=== PATIENT | female | born 1955 | race Caucasian/White ===

== ENCOUNTER 2018-04-27 17:46 | Outpatient (CLI) | payer OTHER, SELFPAY ==
[2018-04-27] VITALS (19 sets, daily range): BP systolic 141–169; BP diastolic 78–88; PULSE 58–93; RESP 12–16; TEMP 36.2–37.2; O2SAT 97–100; BMI 21.8
--- NOTE | 2018-04-27 22:50 | PC.NURSE ---
During infusion pt would begin to get upset, speaking rapidly, and crying. Blood pressure would increase during these moments. Calming techniques required with good results, will continue monitoring.
[2018-04-28] VITALS: BP 154/82; PULSE 70; PULSE 84; RESP 14; TEMP 36.6; O2SAT 100
[2018-04-28 00:05] VITALS: BP 160/100; PULSE 89; RESP 16; TEMP 36.3; O2SAT 98
--- NOTE | 2018-04-28 00:59 | PC.NURSE ---
Phoned [facility] to set up transfer back to [place]. The ambulance service reported they do not transfer [facility] patients after midnight, but would be happy to transfer at 0800 in the an. Alerted House Super Sharon Mcdonnell RN.
[2018-04-28 01:00] VITALS: BP 134/97; PULSE 75; RESP 14; TEMP 36.6; O2SAT 100
[2018-04-28 01:07] LABS: Hematocrit 32.6 % (37.0-47.0); Hemoglobin 9.9 g/dL (12.2-16.2)
--- NOTE | 2018-04-28 02:47 | PC.NURSE ---
Got pt settled following information concerning transfer was not going to happen until 0800. Pt has water w/i reach and call bauman in bed with her. Bed safety is on and audible. Suggested pt try to rest, lighting arranged to pt's satisfaction, will continue monitoring.
[2018-04-28 04:00] VITALS: PULSE 70
--- NOTE | 2018-04-28 06:38 | PC.NURSE ---
Pt with intermittent sleep, awake more than not. Confusion, anxious, and suspicion continues with each room entry. IV d/c'd following last unit. Pt resting on right lateral with nad, even and unlabored breathing. Pt reports she has waited as calmly as I can for breakfast. Will continue monitoring.
--- NOTE | 2018-04-28 07:00 | PC.NURSE ---
Shift report given with no changes from previous note.
--- NOTE | 2018-04-28 07:43 | PC.NURSE ---
Shift report given to Juana Trimble RN
--- NOTE | 2018-04-28 08:04 | PC.NURSE ---
[facility] [place]
== END 2018-04-28 08:24 ==
PROVIDERS: PCP Emergency Medicine; Visit Provider Emergency Medicine
DX: D64.9 Anemia, unspecified (principal)
CPT/HCPCS: 36415; 36430; 85014; 85018; 86850; P9016

== ENCOUNTER 2018-05-23 05:43 | Inpatient (IN) ==
--- NOTE | 2018-05-23 05:49 | Emergency Department Note ---
ED Disposition Clinical Impression: Hypoxia, Sinus tachycardia, Left shift, Hyponatremia, Hypochloremia, Elevated d-dimer, Hypomagnesemia, Upper gastrointestinal bleed, Severe sepsis Aspiration pneumonia Qualifiers: Aspiration pneumonia type: unspecified Laterality: bilateral Lung location: unspecified part of lung Qualified Code(s): J69.0 - Pneumonitis due to inhalation of food and vomit Leukocytosis Qualifiers: Leukocytosis type: unspecified Qualified Code(s): D72.829 - Elevated white blood cell count, unspecified Fever Qualifiers: Fever type: unspecified Qualified Code(s): R50.9 - Fever, unspecified Anemia Qualifiers: Anemia type: unspecified type Qualified Code(s): D64.9 - Anemia, unspecified Chronic renal insufficiency Qualifiers: Chronic kidney disease stage: unspecified stage Qualified Code(s): N18.9 - Chronic kidney disease, unspecified Disposition: Admitted As Inpatient Condition on Discharge: Serious (Stable) Time of Disposition: 07:03 - Critical Care Critical Care Time: No Attestation: On , the high probability of a clinically significant, sudden or life threatening deterioration of the following system(s) required my full and direct attention, intervention and personal management. The time I documented below is in addition to time spent performing reported procedures but includes the following listed in this critical care notation. Medical Decision Making - Medical Records Medical records reviewed: Yes: I reviewed the patient's medical records. - [place] Inquiry Pt receiving controlled substance: No Vital Signs: 05/23/18 05:44 05/23/18 06:02 05/23/18 06:16 Temperature 103.1 F H Temperature Source Rectal Pulse Rate 129 H Pulse Rate [Right Radial] 131 H 122 H Respiratory Rate 14 18 Blood Pressure [Right Arm] 111/72 105/63 L Blood Pressure Mean [Right Arm] 85 77 Blood Pressure Source [Right Arm] Automatic Cuff Automatic Cuff Blood Pressure Position [Right Arm] Sitting Supine 02 Sat by Pulse Oximetry 80 L 87 L Oxygen Delivery Method Nasal Cannula Nasal Cannula Oxygen Flow Rate (LPM) 2 4 05/23/18 06:30 05/23/18 06:45 05/23/18 07:12 Temperature 99.3 F Temperature Source Rectal Pulse Rate Pulse Rate [Right Radial] 120 H 118 H 110 H Respiratory Rate 18 18 20 Blood Pressure [Right Arm] 91/59 L 93/59 L 93/48 L Blood Pressure Mean [Right Arm] 69 70 63 Blood Pressure Source [Right Arm] Automatic Cuff Automatic Cuff Blood Pressure Position [Right Arm] Supine Supine 02 Sat by Pulse Oximetry 93 L 95 98 Oxygen Delivery Method Nasal Cannula Nasal Cannula Nasal Cannula Oxygen Flow Rate (LPM) 4 4 05/23/18 07:16 Temperature Temperature Source Pulse Rate Pulse Rate [Right Radial] 109 H Respiratory Rate 22 Blood Pressure [Right Arm] 88/56 L Blood Pressure Mean [Right Arm] 66 Blood Pressure Source [Right Arm] Blood Pressure Position [Right Arm] 02 Sat by Pulse Oximetry 99 Oxygen Delivery Method Nasal Cannula Oxygen Flow Rate (LPM) 4 - Lab Data Lab results reviewed: Yes: I reviewed the patient's lab results. Lab Results 05/23/18 05:52: WBC 15.3 H, RBC 3.37 L, Hgb 9.4 L, Hct 29.8 L, MCV 88.3, MCH 27.8, MCHC 31.4 L, RDW 19.2 H, Plt Count 203, MPV 6.7 L, Neut % (Auto) 89.1 H, Lymph % (Auto) 7.5 L, George % (Auto) 3.0, Eos % (Auto) 0.3, Baso % (Auto) 0.1, Neut # (Auto) 13.7 H, Lymph # (Auto) 1.2, George # (Auto) 0.5, Eos # (Auto) 0.1, Baso # (Auto) 0.0 05/23/18 05:52: APTT 42.8 H 05/23/18 05:52: Sodium 125 L, Potassium 4.4, Chloride 94 L, Carbon Dioxide 21, Anion Gap 14.4, BUN 43 H, Creatinine 2.18 H, Estimated Creat Clear 22, Estimated GFR 23 L, Est GFR ( Amer) 28 L, Glucose 93, Calcium 7.3 L, Total Bilirubin 0.4, AST 17, ALT 11 L, Alkaline Phosphatase 133 H, Total Creatine Kinase 45, CK-MB (CK-2) < 0.5, CK-MB (CK-2) Rel Index 1.1, Troponin I < 0.02, Total Protein 6.5, Albumin 1.2 L, Globulin 5.3 H, Albumin/Globulin Ratio 0.2 L, Amylase 20 L, Lipase 59 L 05/23/18 05:52: Urine Color Dk yellow, Urine Appearance Turbid, Urine pH 6.0, Ur Specific Geary 1.010, Urine Protein 2+, Urine Glucose (UA) Negative, Urine Ket ones Negative, Urine Blood 3+, Urine Nitrate Negative, Urine Bilirubin Negative, Urine Urobilinogen 0.2, Ur Leukocyte Esterase 2+ A, Urine RBC Tntc, Urine WBC 10-20, Ur Squamous Epith Cells Occasional, Urine Bacteria 4+ 05/23/18 05:52: PT 13.0 H, INR 1.27 H 05/23/18 05:52: Stool Occult Blood Positive A 05/23/18 05:52: Magnesium 0.7 L 05/23/18 05:52: B-Natriuretic Peptide 182 H 05/23/18 05:52: D-Dimer 3510 H* 05/23/18 05:52: Lactate 0.5 05/23/18 05:56: Specimen Source L radial, O2 % 4 lpm, ABG pH 7.43, ABG pCO2 29.0 L, ABG pO2 98.9, ABG HCO3 18.9 L, ABG Total CO2 19.8 L, ABG O2 Saturation 97, ABG Base Excess -5.4 L, Ryan Test Acceptable 05/23/18 06:30: Blood Type O Negative, Antibody Screen Negative Result diagrams: 05/23/18 05:52 05/23/18 05:52 Orders (Tests/Meds): ED MEDICATIONS Generic Name Dose Route Start Last Admin Trade Name Freq PRN Reason Stop Dose Admin Albuterol Sulfate 2.5 mg 05/23/18 09:00 Albuterol 0.083% 2.5mg/3ml Neb IH 06/22/18 08:59 Q6HP PRN Dyspnea Pantoprazole Sodium 80 mg/ 100 mls @ 10 mls/hr 05/23/18 06:00 05/23/18 06:19 Sodium Chloride IV 05/26/18 05:59 10 mls/hr .Q10H NILS Administration Vancomycin HCl 1,000 mg/ 250 mls @ 125 mls/hr 05/23/18 05:58 05/23/18 06:19 Sodium Chloride IV 05/23/18 07:57 125 mls/hr ONCE ONE Administration Clindamycin Phosphate 900 mg/ 106 mls @ 100 mls/hr 05/23/18 06:27 05/23/18 06:57 Sodium Chloride IV 05/23/18 07:30 100 mls/hr ONCE ONE Administration Protocol Sodium Chloride 1,000 mls @ 75 mls/hr 05/23/18 07:15 Sod Chlor 0.9% 1000ml Bag IV 06/22/18 07:14 .[id number] NILS Clindamycin Phosphate 600 mg/ 104 mls @ 104 mls/hr 05/23/18 07:15 05/23/18 07:21 Sodium Chloride IV 06/06/18 07:14 Not Given Q6H NILS Protocol Magnesium Sulfate 2 gm/ Sodium 104 mls @ 100 mls/hr 05/23/18 07:13 Chloride IV 05/23/18 08:15 ONCE ONE Vancomycin HCl 1,000 mg/ 250 mls @ 125 mls/hr 05/23/18 07:15 05/23/18 07:21 Sodium Chloride IV 06/06/18 07:14 Not Given Q24H NILS Sodium Chloride 1,500 mls @ 750 mls/hr 05/23/18 07:15 05/23/18 07:21 Sod Chlor 0.9% 1000ml Bag 30 ml/kg infuse over 2 hr (1500 ml) 05/23/18 09:14 750 mls/hr IV Administration .Q2H ONE Protocol Ondansetron HCl 4 mg 05/23/18 07:04 Zofran 4mg/2ml Vial IV 06/22/18 07:03 Q8HP PRN Nausea Discontinued Medications Generic Name Dose Route Start Last Admin Trade Name Freq PRN Reason Stop Dose Admin Albuterol/Ipratropium 3 ml 05/23/18 05:57 05/23/18 07:18 Duoneb 3ml Neb 05/23/18 05:58 Not Given ONCE ONE Albuterol/Ipratropium 3 ml 05/23/18 05:56 05/23/18 07:18 Duoneb 3ml Neb 05/23/18 05:57 Not Given ONCE ONE Sodium Chloride 1,000 mls @ 999 mls/hr 05/23/18 06:00 05/23/18 06:19 Sod Chlor 0.9% 1000ml Bag IV 05/23/18 07:00 999 mls/hr .Q1H1M NILS Administration Pantoprazole Sodium 40 mg/ 100 mls @ 10 mls/hr 10/23/18 05:49 05/23/18 06:17 Sodium Chloride IV 05/23/18 15:48 Not Given .Q10H ONE Levalbuterol HCl 1.25 mg 05/23/18 06:01 05/23/18 06:02 Xopenex 1.25mg/3ml Neb IH 05/23/18 06:02 1.25 mg ONCE ONE Administration Ondansetron HCl 4 mg 05/23/18 05:49 05/23/18 06:20 Zofran 4mg/2ml Vial IV 05/23/18 05:50 4 mg ONCE ONE Administration Pantoprazole Sodium 40 mg 05/23/18 06:18 05/23/18 06:19 Protonix 40mg Vial IV 05/23/18 06:19 40 mg ONCE ONE Administration Sodium Chloride 8 ml 05/23/18 06:18 Saline Flush 10ml Syringe IV 05/23/18 06:19 ONCE ONE ORDERS Category Date Time Status XR chest portable Routine Exams 05/24/18 06:30 Ordered Complete Blood Count Auto Diff Stat Lab 05/23/18 05:52 Results Complete Blood Count Auto Diff Timed Lab 05/24/18 06:00 Ordered Comprehensive Metabolic Panel Timed Lab 05/24/18 06:00 Ordered Magnesium Timed Lab 05/24/18 06:00 Ordered Occult Blood,Gastric Fluid Stat Lab 05/23/18 05:49 Ordered Occult Blood,Stool Stat Lab 05/23/18 05:52 Ordered Urinalysis and Microscopic Stat Lab 05/23/18 05:52 Ordered Blood Culture Stat Micro 05/23/18 05:52 Received Urine Culture Stat Micro 05/23/18 05:52 Received ECG Request by /Davidson Routine Y 05/23/18 07:04 Ordered - Radiology Data #1 Image(s): Chest Image Reviewed: Yes I reviewed the patient's radiology image Preliminary PCXR reading by myself: pneumonia (probably aspiration). - ECG Data Tracing #1 I reviewed this ECG and interpreted as documented below: (Sinus tachycardia, anterior infarct (age undetermined)) Arrhythmias present: sinus tach (possible anterior infarct, age undetermined.) - Physician Consults Physician Consulted: Dr. Bell Time: 06:58 Reason -: Admission, Pt condition Medical Decision Narrative: 06:20 Pt evaluated. EKG, PCXR, screening labs ordered. Tylenol 975 mg MN ordered. Xopenex neb ordered. IV fluids ordered. I also ordered Vancomycin 1 gm IVPB. Pt will be need to be admitted. 06:35 D-dimer elevated. CT PE chest will be ordered pending renal function. 06:[address] Bell superintendent transmission for Dr. Pimentel. Pt will be admitted. Pt aware. 07:16 Pt's BP 88/66 so she hits severe sepsis protocol. 30 ml/kg IV fluid bolus ordered. General Adult HPI - General Stated complaint: fever, coffee ground emesis,decreased o2 sats Time Seen by Provider: 05/23/18 05:43 Mode of Arrival: EMS Source of Information: Patient, Medical Record (ECF) Limitations: Clinical condition - History of Present Illness HPI narrative: Pt is here in the ER for evaluation from local ECF for evaluation after pt apparently had an episode of coffee ground emesis this morning [employer] in ER. Pt was on daily Eliquis and ASA, which were stopped on 05-22-18 that leads me to believe she has had other episodes. Pt is febrile and tachycardic with occasional congested cough. Pt admits having some generalized abdominal pain. No chest pain. Pt appears fatigued and stuporous but arouses easily and answers questions. Pt does appear to have some confusion as she couldn't tell me how many times she vomited or when it started. Therefore, ROS is limited and not reliable. - Related Data Home Medications Medication Instructions Recorded Confirmed ALPRAZolam [Xanax 1mg tab] 1 mg PO BID 05/02/18 05/23/18 Carvedilol [Coreg 12.5mg 12.5 mg PO BID 05/02/18 05/23/18 Tablet] Mometasone/Formoterol [Dulera 100 8.8 gm IH BID 05/02/18 05/23/18 Mcg/5 Mcg Inhaler] NIFEdipine [Nifedipine ER] 30 mg PO DAILY 05/02/18 05/23/18 OXcarbazepine [Oxcarbazepine] 150 mg PO BID 05/02/18 05/23/18 Omeprazole [Omeprazole 20mg 20 mg PO DAILY 05/02/18 05/23/18 Capsule] Quetiapine Fumarate [Seroquel] 400 mg PO HS 05/02/18 05/23/18 RX: Benztropine Mesylate 1 mg PO BID 05/02/18 05/23/18 RX: Raloxifene HCl 60 mg PO DAILY 05/02/18 05/23/18 RX: Topiramate 25 mg PO BID 05/02/18 05/23/18 RX: Vitamin E 400 unit PO DAILY 05/02/18 05/23/18 Esomeprazole Magnesium [Nexium] 20 mg PO DAILY 05/23/18 05/23/18 Ondansetron HCl [Ondansetron 8mg 8 mg PO Q8HP PRN 05/23/18 05/23/18 Tablet] Oxycodone HCl/Acetaminophen 1 tab PO NEEDED PRN 05/23/18 05/23/18 [Percocet 5/325mg tablet] Allergies Allergy/AdvReac Type Severity Reaction Status Date / Time doxepin Allergy Verified 05/02/18 00:05 Penicillins Allergy Verified 05/02/18 00:05 [facility] History I have reviewed the patient's past medical history: Yes Medical History: Denies:: Diabetes Mellitus Type 1 Other Medical History: Reports: Other Comment: Small bowel obstruction; congenital malrotation; aspiration pneumonia; schizophrenia; hydronephrosis; HTN; COPD; pneumonia; NIDDM; acute respiratory failure; malnutrition; hand ischemia; hypothermia; hypokalemia; hypomagnesemia; anemia due to blood loss; hypotension; feeding difficulty; seizure disorder; anxiety. - Social History Smoking Status: Current every day smoker Alcohol Intake: never Housing: shelter Family Hx:: Non-contributory ROS Obtained: Yes All systems reviewed & no additional complaints, Yes other (ROS limited due to clinical condition) - Constitutional Constitutional: Reports as per HPI, Reports fatigue, Reports fever(s) - Eyes Eyes: Reports system reviewed and no additional complaints, except as docu - ENT Ears, Nose, Mouth, and Throat: Reports system reviewed and no additional complaints, except as docu - Cardiovascular Cardiovascular: Reports as per HPI, Reports rapid heart rate - Respiratory Respiratory: Yes as per HPI, Yes chest congestion, Yes cough, Yes dyspnea, Yes other (hypoxia) - Gastrointestinal Gastrointestingal: Reports: as per HPI, abdominal pain, coffee ground emesis - Genitourinary Male Genitourinary: Reports system reviewed and no additional complaints, except as docu - Musculoskeletal Musculoskeletal: Reports system reviewed and no additional complaints, except as docu - Integumentary/Breasts Skin/Breast: Reports system reviewed and no additional complaints, except as docu - Neurologic Neurologic: Reports system reviewed and no additional complaints, except as docu - Endocrine Endocrine: Reports system reviewed and no additional complaints, except as docu - Hematologic/Lymphatic Henatologic/Lymphatic: Reports system reviewed and no additional complaints, except as docu - Allergic/Immunologic Allergic/Immunologic: Reports system reviewed and no additional complaints, except as docu Physical Exam - General General appearance: lethargic (but easily arousable.), other (Fatigued) - Head Head exam: atraumatic, normocephalic, normal inspection - Eye Eye exam: Present: PERRL, EOMI - ENT ENT exam: Present: mucous membranes moist, other (poor dentition) - Neck Neck exam: Present: trachea midline - Chest Chest inspection: Present: symmetric chest wall rise. Absent: tenderness - Respiratory Respiratory exam: Present: other (Diminished BS bilaterally with diffuse rhonchi and occasional congested cough.). Absent: wheezes, stridor - Expanded Respiratory Exam Location: Left: decreased breath sounds, Right: decreased breath sounds, Upper: decreased breath sounds, Lower: decreased breath sounds - Cardiovascular Cardiovascular exam: Present: tachycardia. Absent: systolic murmur, rubs, gallop - Abdominal Exam Abdominal exam: Present: soft, tenderness (generalized), rebound (equivocal), diminished bowel sounds. Absent: rigidity - Rectal Exam Rectal exam: Present: normal inspection, normal rectal tone, other (brown stool). Absent: fecal impaction, hemorrhoids, mass, tenderness - External exam: Present: normal external exam - Extremities Exam Extremities exam: Present: normal inspection. Absent: tenderness - Back Exam Back exam: Absent: CVA tenderness (R), CVA tenderness (L) - Neurological Exam Neurological exam: Present: CN II-XII intact. Absent: motor sensory deficit - Psychiatric Psychiatric exam: Present: flat affect. Absent: agitated, anxious - Skin Skin exam: Present: warm, dry, intact, pallor
[2018-05-23 06:06] LABS: Microscopic, Urine URINE MICROSCOPIC (MICROSCOPIC)
[2018-05-23 06:07] LABS: Basophils % 0.1 % (0.1-2.0); Eosinophils # 0.1 K/mm3 (0.0-0.4); Eosinophils % 0.3 % (0.1-12.0); Hematocrit 29.8 % (37.0-47.0); Hemoglobin 9.4 g/dL (12.2-16.2); Lymphocytes # 1.2 K/mm3 (0.7-4.5); Lymphocytes % 7.5 K/mm3 (10-50); Mean Corpuscular HGB Conc 31.4 g/dL (31.8-35.4); Mean Corpuscular Hemoglobin 27.8 pg (27.0-31.2); Mean Corpuscular Volume 88.3 fl (81-99); Mean Platelet Volume 6.7 fl (7.4-10.4); Monocytes # 0.5 K/mm3 (0.1-1.0); Neutrophils # 13.7 K/mm3 (1.8-7.8); Neutrophils % 89.1 % (37.0-80.0); Platelet Count 203 K/mm3 (142-424); Red Blood Count 3.37 M/mm3 (4.20-5.40); Red Cell Distribution Width 19.2 % (11.5-17.5); White Blood Count 15.3 K/mm3 (4.8-10.8)
[2018-05-23 06:12] LABS: ABG Base Excess -5.4 mmol/L (-2.4-2.3); ABG HCO3 18.9 mmhg (22.0-26.0); ABG Oxygen Saturation 97 % (90-100); ABG PH 7.43 mmol/L (7.35-7.45); ABG PO2 98.9 mmhg (80-100); ABG TCO2 19.8 mmhg (23-27)
[2018-05-23 06:13] LABS: Chloride 94 mmol/L (98-107); Potassium 4.4 mmoL/L (3.5-5.1); Sodium 125 mmol/L (136-145)
[2018-05-23 06:13] LABS: Allen's Test ACCEPTABLE; Oxygen 4 LPM %
[2018-05-23 06:15] LABS: INR 1.27 (0.9-1.1)
[2018-05-23 06:23] LABS: Appearance,Urine TURBID (Clear); Bilirubin,Urine Negative (Negative); Blood, Urine 3+ (Negative); Color,Urine DK YELLOW (Yellow); Glucose,Urine (UA) Negative (Negative); Ketones,Urine Negative (Negative); Leukocyte Esterase,Urine 2+ (Negative); Protein,Urine 2+ (Negative); Urobilinogen,Urine 0.2 EU/dl (0.2)
[2018-05-23 06:38] LABS: Alanine Aminotransferase 11 U/L (12-78); Albumin Level 1.2 gm/dL (3.4-5.0); Albumin/Globulin Ratio 0.2 (1.1-1.8); Alkaline Phosphatase 133 U/L (46-116); Amylase 20 U/L (25-125); Aspartate Amino Transferase 17 U/L (15-37); Bilirubin,Total 0.4 mg/dL (0.2-1.0); Blood Urea Nitrogen 43 mg/dL (7-18); Calcium 7.3 mg/dL (8.5-10.1); Carbon Dioxide 21 mmol/L (21.0-32.0); Creatine Kinase 45 U/L (26-192); Globulin 5.3 gm/dl (1.3-3.2); Glucose 93 mg/dL (74-106); Lipase 59 u/L (73-393); Total Protein,Serum 6.5 gm/dL (6.4-8.2)
[2018-05-23 06:50] LABS: Bacteria,Urine 4+ /lpf; RBC,Urine TNTC #/hpf (0-3); Squamous Epithelial Cell,Urine Occasional #/hpf (0-5)
[2018-05-23 07:11] LABS: Anion Gap 14.4 mEq/L (5-15)
[2018-05-23 07:30] LABS: Lymphocytes % 4 % (10-50); Neutrophils % 96 % (42-76); Total Cells Counted 100
--- NOTE | 2018-05-23 07:37 | Pharmacy Consult Notes ---
[facility] Pharmacy VTE Monitoring - Patient Demographics Admission date: 05/23/18 Report Date: 05/23/18 Time: 07:37 Allergies/Adverse Reactions: Patient Allergies doxepin Allergy (Verified 05/02/18 00:05) Penicillins Allergy (Verified 05/02/18 00:05) Height: 1.52 m Weight: 49.895 kg Patient Problems: Current Active Problems UGIB (upper gastrointestinal bleed) (Acute) Aspiration pneumonia (Acute) Hypoxia (Acute) Sinus tachycardia (Acute) Leukocytosis (Acute) Left shift (Acute) Hyponatremia (Acute) Hypochloremia (Acute) Fever (Acute) Anemia (Acute) Elevated d-dimer (Acute) Chronic renal insufficiency (Acute) Hypomagnesemia (Acute) Severe sepsis (Acute) - VTE Risk Labs: VTE Related Lab Results Hgb 9.4 g/dL (12.2-16.2) L 05/23/18 05:52 Hct 29.8 % (37.0-47.0) L 05/23/18 05:52 Plt Count 203 K/mm3 (142-424) 05/23/18 05:52 PT 13.0 seconds (9.4-11.8) H 05/23/18 05:52 INR 1.27 (0.9-1.1) H 05/23/18 05:52 APTT 42.8 seconds (23.6-34.0) H 05/23/18 05:52 BUN 43 mg/dL (7-18) H 05/23/18 05:52 Creatinine 2.18 mg/dL (0.55-1.02) H 05/23/18 05:52 Estimated Creat Clear 22 mL/min (0-300) 05/23/18 05:52 - Prophylaxis VTE Prophylaxis Ordered?: Yes Types of VTE Prophylaxis: TEDS Knee High Location of Applied Device: Bilateral Lower Extremeties - VTE Diagnosis Confirmed Treatment or plan recommended: Continue Current Treatment
--- NOTE | 2018-05-23 07:39 | History & Physical Report ---
*Admission Date: 05/23/18 *Chief complaint: Witnessed coffee-ground emesis, fever, shortness of breath *History of present illness: 8-year-old female resident of [facility] was sent to the ER after patient was found covered in coffee-ground emesis with low-grade fever and O2 sats in the 80s. Workup in the emergency department is revealed a right lower lobe pneumonia suspected to be due to aspiration. Patient was febrile with decreased O2 sats that did respond to application of oxygen via nasal cannula at 4 L/min. Also complained of some abdominal pain and she has been started on Protonix drip in anticipation of upper GI bleed. Patient had been on aspirin and Plavix until yesterday when this was discontinued at the assisted. [facility] History I have reviewed the patient's past medical history: No (Patient unable to give details of medical history) Medical History: Denies:: Diabetes Mellitus Type 1 Other Medical History: Reports: Other - *Social History Smoking Status: Current every day smoker Alcohol Intake: never Housing: assisted - Psychiatric History Expresses thoughts of harming self/others: None Suicide Plan Description: No Plan *Family Hx:: Non-contributory Review of Systems - Review of Systems Review of systems:: unable to obtain Meds Home Medications Medication Instructions Recorded Confirmed Type ALPRAZolam [Xanax 1mg tab] 1 mg PO BID 05/02/18 05/23/18 History Benztropine Mesylate 1 mg PO BID 05/02/18 05/23/18 History Carvedilol [Coreg 12.5mg 12.5 mg PO BID 05/02/18 05/23/18 History Tablet] Mometasone/Formoterol [Dulera 100 8.8 gm IH BID 05/02/18 05/23/18 History Mcg/5 Mcg Inhaler] NIFEdipine [Nifedipine ER] 30 mg PO DAILY 05/02/18 05/23/18 History OXcarbazepine [Oxcarbazepine] 150 mg PO BID 05/02/18 05/23/18 History Omeprazole [Omeprazole 20mg 20 mg PO DAILY 05/02/18 05/23/18 History Capsule] Quetiapine Fumarate [Seroquel] 400 mg PO HS 05/02/18 05/23/18 History Raloxifene HCl 60 mg PO DAILY 05/02/18 05/23/18 History Topiramate 25 mg PO BID 05/02/18 05/23/18 History Vitamin E 400 unit PO DAILY 05/02/18 05/23/18 History Esomeprazole Magnesium [Nexium] 20 mg PO DAILY 05/23/18 05/23/18 History Ondansetron HCl [Ondansetron 8mg 8 mg PO Q8HP PRN 05/23/18 05/23/18 History Tablet] Oxycodone HCl/Acetaminophen 1 tab PO NEEDED PRN 05/23/18 05/23/18 History [Percocet 5/325mg tablet] Allergies Allergy/AdvReac Type Severity Reaction Status Date / Time doxepin Allergy Verified 05/02/18 00:05 Penicillins Allergy Verified 05/02/18 00:05 Exam Vital signs and Labs for Last 24 Hours: Temp Pulse Resp BP Pulse Ox 99.3 F 107 H 20 78/54 L 94 L 05/23/18 07:12 05/23/18 07:28 05/23/18 07:28 05/23/18 07:28 05/23/18 07:28 Laboratory Results - last 24 hr 05/23/18 05:52: WBC 15.3 H, RBC 3.37 L, Hgb 9.4 L, Hct 29.8 L, MCV 88.3, MCH 27.8, MCHC 31.4 L, RDW 19.2 H, Plt Count 203, MPV 6.7 L, Neut % (Auto) 89.1 H, Lymph % (Auto) 7.5 L, [place] % (Auto) 3.0, Eos % (Auto) 0.3, Baso % (Auto) 0.1, Neut # (Auto) 13.7 H, Lymph # (Auto) 1.2, [place] # (Auto) 0.5, Eos # (Auto) 0.1, Baso # (Auto) 0.0, Total Counted 100, Neutrophils % (Manual) 96 H, Lymphocytes % (Manual) 4 L, Platelet Estimate Normal 05/23/18 05:52: APTT 42.8 H 05/23/18 05:52: Sodium 125 L, Potassium 4.4, Chloride 94 L, Carbon Dioxide 21, Anion Gap 14.4, BUN 43 H, Creatinine 2.18 H, Estimated Creat Clear 22, Estimated GFR 23 L, Est GFR ( Amer) 28 L, Glucose 93, Calcium 7.3 L, Total Bilirubin 0.4, AST 17, ALT 11 L, Alkaline Phosphatase 133 H, Total Creatine Kinase 45, CK-MB (CK-2) < 0.5, CK-MB (CK-2) Rel Index 1.1, Troponin I < 0.02, Total Protein 6.5, Albumin 1.2 L, Globulin 5.3 H, Albumin/Globulin Ratio 0.2 L, Amylase 20 L, Lipase 59 L 05/23/18 05:52: Urine Color Dk yellow, Urine Appearance Turbid, Urine pH 6.0, Ur Specific [place] 1.010, Urine Protein 2+, Urine Glucose (UA) Negative, Urine Ketones Negative, Urine Blood 3+, Urine Nitrate Negative, Urine Bilirubin Nega tive, Urine Urobilinogen 0.2, Ur Leukocyte Esterase 2+ A, Urine RBC Tntc, Urine WBC 10-20, Ur Squamous Epith Cells Occasional, Urine Bacteria 4+ 05/23/18 05:52: PT 13.0 H, INR 1.27 H 05/23/18 05:52: Stool Occult Blood Positive A 05/23/18 05:52: Magnesium 0.7 L 05/23/18 05:52: B-Natriuretic Peptide 182 H 05/23/18 05:52: D-Dimer 3510 H* 05/23/18 05:52: Lactate 0.5 05/23/18 05:56: Specimen Source L radial, O2 % 4 lpm, ABG pH 7.43, ABG pCO2 29.0 L, ABG pO2 98.9, ABG HCO3 18.9 L, ABG Total CO2 19.8 L, ABG O2 Saturation 97, ABG Base Excess -5.4 L, Ryan Test Acceptable 05/23/18 06:30: Blood Type O Negative, Antibody Screen Negative I & O for Last 24 hours: Intake & Output 05/20/18 05/21/18 05/22/18 05/23/18 11:59 11:59 11:59 11:59 Weight 110 lb Narrative: Patient is arousable. Oropharynx is dry which makes speech difficult to understand. She is missing multiple teeth. Pupils are reactive to light. Neck is without lymphadenopathy. Lungs have diffuse rhonchi both right and left- sided with rales in the right base. Heart is tachycardic. Abdomen is soft with right upper quadrant and epigastric tenderness to palpation. Bowel sounds are diminished. Patient appears to be able to move all extremities although effort is quite poor. Extremities are warm to the touch and she has adequate perfusion of the distal extremities. Assessment and Plan (1) Aspiration pneumonia Current visit: Yes Status: Acute Qualifiers: Aspiration pneumonia type: unspecified Laterality: bilateral Lung location: unspecified part of lung Qualified Code(s): J69.0 - Pneumonitis due to inhalation of food and vomit Category: Medical Code(s): J69.0 - Pneumonitis due to inhalation of food and vomit (2) UGIB (upper gastrointestinal bleed) Current visit: Yes Status: Acute Category: Medical Code(s): K92.2 - Gastrointestinal hemorrhage, unspecified (3) Anemia Current visit: Yes Status: Acute Qualifiers: Anemia type: unspecified type Qualified Code(s): D64.9 - Anemia, unspecified Category: Medical Code(s): D64.9 - Anemia, unspecified (4) Hypomagnesemia Current visit: Yes Status: Acute Category: Medical Code(s): E83.42 - Hypomagnesemia (5) Hyponatremia Current visit: Yes Status: Acute Category: Medical Code(s): E87.1 - Hypo- osmolality and hyponatremia (6) Severe sepsis Current visit: Yes Status: Acute Category: Medical Code(s): A41.9 - Sepsis, unspecified organism; R65.20 - Severe sepsis without septic shock - Assessment and plan all Dx Assessment and Plan for all problems:: 1. Start clindamycin for suspected aspiration pneumonia 2. Serial H&H's to follow anemia. Protonix drip has been started and will be continued. 3. Patient meets severe sepsis criteria and fluid bolus has been started in the emergency department and will be completed. At this time patient has adequate peripheral perfusion. 4. Replacement he is 5. Patient n.p.o. for now until swallowing evaluation to be done when patient is more alert
[2018-05-23 08:51] LABS: Hemoglobin 5.9 g/dL (12.2-16.2)
[2018-05-23 08:52] LABS: Hematocrit 18.4 % (37.0-47.0)
--- NOTE | 2018-05-23 14:42 | Consult Report ---
*Admission Date: 05/23/18 *Chief complaint: GI bleed *History of present illness: Patient is a 62-year-old white female who is a detention resident at [facility]. She was reportedly found with copious amounts of coffee-ground emesis. She was noted to be hypoxic. Patient was escorted to the [facility] emergency department early this morning. She was diagnosed with presumed aspiration pneumonia. She was admitted. She is given IV fluids. She was noted to have findings of severe sepsis. Repeat CBC revealed diminished hemoglobiN. Surgical consultation was obtained. Review of Systems - Review of Systems Review of systems:: unable to obtain [facility] History Medical History: Reports:: Diabetes Mellitus Type 1 Other Medical History: Reports: Anemia, Other - *Social History Smoking Status: Current every day smoker Alcohol Intake: never Occupational Status: disabled Housing: detention - Psychiatric History Expresses thoughts of harming self/others: None Suicide Plan Description: No Plan *Family Hx:: Unable to obtain [facility] Home Medications Medication Instructions Recorded Confirmed Type ALPRAZolam [Xanax 1mg tab] 1 mg PO BID 05/02/18 05/23/18 History Benztropine Mesylate 1 mg PO BID 05/02/18 05/23/18 History Carvedilol [Coreg 12.5mg 12.5 mg PO BID 05/02/18 05/23/18 History Tablet] Mometasone/Formoterol [Dulera 100 2 puffs IH BID 05/02/18 05/23/18 History Mcg/5 Mcg Inhaler] NIFEdipine [Nifedipine ER] 30 mg PO DAILY 05/02/18 05/23/18 History OXcarbazepine [Oxcarbazepine] 150 mg PO BID 05/02/18 05/23/18 History Omeprazole [Omeprazole 20mg 20 mg PO DAILY 05/02/18 05/23/18 History Capsule] Quetiapine Fumarate [Seroquel] 400 mg PO HS 05/02/18 05/23/18 History Raloxifene HCl 60 mg PO DAILY 05/02/18 05/23/18 History Topiramate 25 mg PO BID 05/02/18 05/23/18 History Vitamin E 400 unit PO DAILY 05/02/18 05/23/18 History Apixaban [Eliquis] 5 mg PO BID 05/23/18 05/23/18 History Esomeprazole Magnesium [Nexium] 20 mg PO DAILY 05/23/18 05/23/18 History Ondansetron HCl [Ondansetron 8mg 4 mg PO Q8HP PRN 05/23/18 05/23/18 History Tablet] Oxycodone HCl/Acetaminophen 1 tab PO Q4HP PRN 05/23/18 05/23/18 History [Percocet 5/325mg tablet] Allergies Allergy/AdvReac Type Severity Reaction Status Date / Time doxepin Allergy Verified 05/02/18 00:05 Penicillins Allergy Verified 05/02/18 00:05 Exam Vital signs and Labs for Last 24 Hours: Temp Pulse Resp BP Pulse Ox 97.9 F 83 18 83/53 L 89 L 05/23/18 14:36 05/23/18 11:10 05/23/18 11:10 05/23/18 11:10 05/23/18 11:10 Laboratory Results - last 24 hr 05/23/18 05:52: WBC 15.3 H, RBC 3.37 L, Hgb 9.4 L, Hct 29.8 L, MCV 88.3, MCH 27.8, MCHC 31.4 L, RDW 19.2 H, Plt Count 203, MPV 6.7 L, Neut % (Auto) 89.1 H, Lymph % (Auto) 7.5 L, [place] % (Auto) 3.0, Eos % (Auto) 0.3, Baso % (Auto) 0.1, Neut # (Auto) 13.7 H, Lymph # (Auto) 1.2, [place] # (Auto) 0.5, Eos # (Auto) 0.1, Baso # (Auto) 0.0, Total Counted 100, Neutrophils % (Manual) 96 H, Lymphocytes % (Manual) 4 L, Platelet Estimate Normal 05/23/18 05:52: APTT 42.8 H 05/23/18 05:52: Sodium 125 L, Potassium 4.4, Chloride 94 L, Carbon Dioxide 21, Anion Gap 14.4, BUN 43 H, Creatinine 2.18 H, Estimated Creat Clear 22, Estimated GFR 23 L, Est GFR ( Amer) 28 L, Glucose 93, Calcium 7.3 L, Total Bilirubin 0.4, AST 17, ALT 11 L, Alkaline Phosphatase 133 H, Total Creatine Kinase 45, CK-MB (CK-2) < 0.5, CK-MB (CK-2) Rel Index 1.1, Troponin I < 0.02, Total Protein 6.5, Albumin 1.2 L, Globulin 5.3 H, Albumin/Globulin Ratio 0.2 L, Amylase 20 L, Lipase 59 L 05/23/18 05:52: Urine Color Dk yellow, Urine Appearance Turbid, Urine pH 6.0, Ur Specific [place] 1.010, Urine Protein 2+, Urine Glucose (UA) Negative, Urine Ketones Negative, Urine Blood 3+, Urine Nitrate Negative, Urine Bilirubin Negative, Urine Urobilinogen 0.2, Ur Leukocyte Esterase 2+ A, Urine RBC Tntc, Urine WBC 10-20, Ur Squamous Epith Cells Occasional, Urine Bacteria 4+ 05/23/18 05:52: PT 13.0 H, INR 1.27 H 05/23/18 05:52: Stool Occult Blood Positive A 05/23/18 05:52: Magnesium 0.7 L 05/23/18 05:52: B-Natriuretic Peptide 182 H 05/23/18 05:52: D-Dimer 3510 H* 05/23/18 05:52: Lactate 0.5 05/23/18 05:56: Specimen Source L radial, O2 % 4 lpm, ABG pH 7.43, ABG pCO2 29.0 L, ABG pO2 98.9, ABG HCO3 18.9 L, ABG Total CO2 19.8 L, ABG O2 Saturation 97, ABG Base Excess -5.4 L, Ryan Test Acceptable 05/23/18 06:30: Blood Type O Negative, Antibody Screen Negative, Crossmatch (AHG) See Detail 05/23/18 08:10: Hgb 5.9 L* D, Hct 18.4 L* I & O for Last 24 hours: Intake & Output 05/21/18 05/22/18 05/23/18 05/24/18 11:59 11:59 11:59 11:59 Intake Total 0 / 0 Balance 0 / 0 Weight 116 lb 6 oz - Constitutional chronically ill appearing Comments: Pallor - *Routine Respiratory Exam Present: decreased breath sounds, rhonchi - *Routine Cardiovascular Exam Present: RRR - *Routine Abdominal Exam Present: soft, tenderness Comments: She has some tenderness in the epigastrium. Results - Labs 05/23/18 08:10 05/23/18 05:52 Laboratory Results - last 24 hr 05/23/18 05:52: WBC 15.3 H, RBC 3.37 L, Hgb 9.4 L, Hct 29.8 L, MCV 88.3, MCH 27.8, MCHC 31.4 L, RDW 19.2 H, Plt Count 203, MPV 6.7 L, Neut % (Auto) 89.1 H, Lymph % (Auto) 7.5 L, [place] % (Auto) 3.0, Eos % (Auto) 0.3, Baso % (Auto) 0.1, Neut # (Auto) 13.7 H, Lymph # (Auto) 1.2, [place] # (Auto) 0.5, Eos # (Auto) 0.1, Baso # (Auto) 0.0, Total Counted 100, Neutrophils % (Manual) 96 H, Lymphocytes % (Manual) 4 L, Platelet Estimate Normal 05/23/18 05:52: APTT 42.8 H 05/23/18 05:52: Sodium 125 L, Potassium 4.4, Chloride 94 L, Carbon Dioxide 21, Anion Gap 14.4, BUN 43 H, Creatinine 2.18 H, Estimated Creat Clear 22, Estimated GFR 23 L, Est GFR ( Amer) 28 L, Glucose 93, Calcium 7.3 L, Total Bilirubin 0.4, AST 17, ALT 11 L, Alkaline Phosphatase 133 H, Total Creatine Kinase 45, CK-MB (CK-2) < 0.5, CK-MB (CK-2) Rel Index 1.1, Troponin I < 0.02, Total Protein 6.5, Albumin 1.2 L, Globulin 5.3 H, Albumin/Globulin Ratio 0.2 L, Amylase 20 L, Lipase 59 L 05/23/18 05:52: Urine Color Dk yellow, Urine Appearance Turbid, Urine pH 6.0, Ur Specific [place] 1.010, Urine Protein 2+, Urine Glucose (UA) Negative, Urine Ketones Negative, Urine Blood 3+, Urine Nitrate Negative, Urine Bilirubin Negative, Urine Urobilinogen 0.2, Ur Leukocyte Esterase 2+ A, Urine RBC Tntc, Urine WBC 10-20, Ur Squamous Epith Cells Occasional, Urine Bacteria 4+ 05/23/18 05:52: PT 13.0 H, INR 1.27 H 05/23/18 05:52: Stool Occult Blood Positive A 05/23/18 05:52: Magnesium 0.7 L 05/23/18 05:52: B-Natriuretic Peptide 182 H 05/23/18 05:52: D-Dimer 3510 H* 05/23/18 05:52: Lactate 0.5 05/23/18 05:56: Specimen Source L radial, O2 % 4 lpm, ABG pH 7.43, ABG pCO2 29.0 L, ABG pO2 98.9, ABG HCO3 18.9 L, ABG Total CO2 19.8 L, ABG O2 Saturation 97, ABG Base Excess -5.4 L, Ryan Test Acceptable 05/23/18 06:30: Blood Type O Negative, Antibody Screen Negative, Crossmatch (AHG) See Detail 05/23/18 08:10: Hgb 5.9 L* D, Hct 18.4 L* Assessment and Plan (1) Aspiration pneumonia Current visit: Yes Status: Acute Qualifiers: Aspiration pneumonia type: unspecified Laterality: bilateral Lung location: unspecified part of lung Qualified Code(s): J69.0 - Pneumonitis due to inhalation of food and vomit Category: Medical Code(s): J69.0 - Pneumonitis due to inhalation of food and vomit (2) UGIB (upper gastrointestinal bleed) Current visit: Yes Status: Acute Category: Medical Code(s): K92.2 - Gastrointestinal hemorrhage, unspecified (3) Anemia Current visit: Yes Status: Acute Qualifiers: Anemia type: unspecified type Qualified Code(s): D64.9 - Anemia, unspecified Category: Medical Code(s): D64.9 - Anemia, unspecified (4) Hypomagnesemia Current visit: Yes Status: Acute Category: Medical Code(s): E83.42 - Hypomagnesemia (5) Hyponatremia Current visit: Yes Status: Acute Category: Medical Code(s): E87.1 - Hypo-osmolality and hyponatremia (6) Severe sepsis Current visit: Yes Status: Acute Category: Medical Code(s): A41.9 - Sepsis, unspecified organism; R65.20 - Severe sepsis without septic shock - Assessment and plan all Dx Assessment and Plan for all problems:: Patient has been on aspirin and Eliquis until yesterday. She has findings of significant sepsis. She likely does have some degree of GI blood loss. However, at this point the risk of diagnostic endoscopy would likely outweigh the risk. Plan to continue with resuscitation and treatment of acute sepsis. Recommend continuation of high-dose proton pump inhibitors. May need upper endoscopy for diagnostic purposes in the near future. However, if it is felt that she is having active bleeding in need of intervention may need endoscopy more urgently. Plan to follow along closely.
[2018-05-23 19:45] LABS: Hematocrit 28.9 % (37.0-47.0)
[2018-05-23 19:54] LABS: Hemoglobin 9.3 g/dL (12.2-16.2)
[2018-05-24 00:40] LABS: Hematocrit 35.5 % (37.0-47.0)
[2018-05-24 00:44] LABS: Hemoglobin 11.6 g/dL (12.2-16.2)
--- NOTE | 2018-05-24 06:21 | Progress Note ---
Internal Medicine - PN: Subj *Date: 05/24/18 *Time: 06:18 Interval history: Shortly after arrival to [facility] floor yesterday patient had follow-up labs that showed significant anemia with hemoglobin of 5.9. Patient was transfused 3 units of packed red blood cells during the day. She received a 3 L fluid bolus upon admission to the emergency department due to meeting sepsis criteria. Patient was hypotensive initially but responded to both her fluid bolus and maintenance fluids at 150 mL's per hour. She was rather weak upon admission but as the day and evening progressed became more awake. She is currently oriented to person and place. She denies pain presently. She would like a drink of water. Surgery has been consulted for potential EGD. Patient does inform me this morning she has a past history of ulcer disease Exam Vital signs and Labs for Last 24 Hours: Temp Pulse Resp BP Pulse Ox 98.4 F 90 16 130/76 100 05/24/18 03:56 05/24/18 04:00 05/24/18 03:56 05/24/18 03:56 05/24/18 03:56 Laboratory Results - last 24 hr 05/23/18 05:52: Total Counted 100, Neutrophils % (Manual) 96 H, Lymphocytes % (Manual) 4 L, Platelet Estimate Normal 05/23/18 05:52: APTT 42.8 H 05/23/18 05:52: Sodium 125 L, Potassium 4.4, Chloride 94 L, Carbon Dioxide 21, Anion Gap 14.4, BUN 43 H, Creatinine 2.18 H, Estimated Creat Clear 22, Estimated GFR 23 L, Est GFR ( Amer) 28 L, Glucose 93, Calcium 7.3 L, Total Bilirubin 0.4, AST 17, ALT 11 L, Alkaline Phosphatase 133 H, Total Creatine Kinase 45, CK-MB (CK-2) < 0.5, CK-MB (CK-2) Rel Index 1.1, Troponin I < 0.02, Total Protein 6.5, Albumin 1.2 L, Globulin 5.3 H, Albumin/Globulin Ratio 0.2 L, Amylase 20 L, Lipase 59 L 05/23/18 05:52: Urine Color Dk yellow, Urine Appearance Turbid, Urine pH 6.0, Ur Specific [place] 1.010, Urine Protein 2+, Urine Glucose (UA) Negative, Urine Ketones Negative, Urine Blood 3+, Urine Nitrate Negative, Urine Bilirubin Negative, Urine Urobilinogen 0.2, Ur Leukocyte Esterase 2+ A, Urine RBC Tntc, Urine WBC 10-20, Ur Squamous Epith Cells Occasional, Urine Bacteria 4+ 05/23/18 05:52: PT 13.0 H, INR 1.27 H 05/23/18 05:52: Stool Occult Blood Positive A 05/23/18 05:52: Magnesium 0.7 L 05/23/18 05:52: B-Natriuretic Peptide 182 H 05/23/18 05:52: D-Dimer 3510 H* 05/23/18 05:52: Lactate 0.5 05/23/18 06:30: Blood Type O Negative, Antibody Screen Negative, Crossmatch (AHG) See Detail 05/23/18 08:10: Hgb 5.9 L* D, Hct 18.4 L* 05/23/18 19:30: Hgb 9.3 L D, Hct 28.9 L 05/24/18 00:18: Hgb 11.6 L D, Hct 35.5 L I & O for Last 24 hours: Intake & Output 05/21/18 05/22/18 05/23/18 05/24/18 11:59 11:59 11:59 11:59 Intake Total 0 / 0 3510 / 3510 Output Total 600 / 600 Balance 0 / 0 2910 / 2910 Weight 116 lb 6 oz 121 lb 9 oz Microbiology Reports for the Last 24 Hours: Microbiology 05/23/18 05:52 Urine,Catheterized Urine Culture - Preliminary NO GROWTH AFTER 24 HOURS 05/23/18 05:52 Blood Blood Culture - Preliminary 05/23/18 05:52 Blood Blood Culture - Preliminary Narrative: Patient awakens easily. Speech is difficult to understand. Oropharynx is moist. Neck is without lymphadenopathy. Lungs have rhonchi on the right with rales at the right base. Heart has a regular rate and rhythm. Abdomen continues to have mild right upper quadrant and epigastric tenderness to palpation. Bowel sounds are present. Assessment and Plan (1) Aspiration pneumonia Current visit: Yes Status: Acute Qualifiers: Aspiration pneumonia type: unspecified Laterality: bilateral Lung location: unspecified part of lung Qualified Code(s): J69.0 - Pneumonitis due to inhalation of food and vomit Category: Medical Code(s): J69.0 - Pneumonitis due to inhalation of food and vomit (2) UGIB (upper gastrointestinal bleed) Current visit: Yes Status: Acute Category: Medical Code(s): K92.2 - Gastrointestinal hemorrhage, unspecified (3) Anemia Current visit: Yes Status: Acute Qualifiers: Anemia type: unspecified type Qualified Code(s): D64.9 - Anemia, unspecified Category: Medical Code(s): D64.9 - Anemia, unspecified (4) Hypomagnesemia Current visit: Yes Status: Acute Category: Medical Code(s): E83.42 - Hypomagnesemia (5) Hyponatremia Current visit: Yes Status: Acute Category: Medical Code(s): E87.1 - Hypo- osmolality and hyponatremia (6) Severe sepsis Current visit: Yes Status: Acute Category: Medical Code(s): A41.9 - Sepsis, unspecified organism; R65.20 - Severe sepsis without septic shock - Assessment and plan all Dx Assessment and Plan for all problems:: 1. Continue Protonix drip and await surgical decision of whether or not to proceed with EGD. 2. Decrease IV fluids 3. Swallowing evaluation once decision on EGD has been made
--- NOTE | 2018-05-24 06:56 | Progress Note ---
Subjective Narrative: Patient more alert. Exam Vital signs and Labs for Last 24 Hours: Temp Pulse Resp BP Pulse Ox 98.4 F 90 16 130/76 100 05/24/18 03:56 05/24/18 04:00 05/24/18 03:56 05/24/18 03:56 05/24/18 03:56 Laboratory Results - last 24 hr 05/23/18 05:52: Total Counted 100, Neutrophils % (Manual) 96 H, Lymphocytes % (Manual) 4 L, Platelet Estimate Normal 05/23/18 05:52: Anion Gap 14.4 05/23/18 05:52: Urine Color Dk yellow, Urine Appearance Turbid, Urine pH 6.0, Ur Specific [place] 1.010, Urine Protein 2+, Urine Glucose (UA) Negative, Urine Ketones Negative, Urine Blood 3+, Urine Nitrate Negative, Urine Bilirubin Negative, Urine Urobilinogen 0.2, Ur Leukocyte Esterase 2+ A, Urine RBC Tntc, Urine WBC 10-20, Ur Squamous Epith Cells Occasional, Urine Bacteria 4+ 05/23/18 05:52: Lactate 0.5 05/23/18 06:30: Blood Type O Negative, Antibody Screen Negative, Crossmatch (AHG) See Detail 05/23/18 08:10: Hgb 5.9 L* D, Hct 18.4 L* 05/23/18 19:30: Hgb 9.3 L D, Hct 28.9 L 05/24/18 00:18: Hgb 11.6 L D, Hct 35.5 L I & O for Last 24 hours: Intake & Output 05/21/18 05/22/18 05/23/18 05/24/18 11:59 11:59 11:59 11:59 Intake Total 0 / 0 3510 / 3510 Output Total 600 / 600 Balance 0 / 0 2910 / 2910 Weight 116 lb 6 oz 121 lb 9 oz Microbiology Reports for the Last 24 Hours: Microbiology 05/23/18 05:52 Urine,Catheterized Urine Culture - Preliminary Gram Negative Rods 05/23/18 05:52 Blood Blood Culture - Preliminary 05/23/18 05:52 Blood Blood Culture - Preliminary - Constitutional no acute distress - *Routine Abdominal Exam Present: soft Comments: Minimal tenderness Progress Note: A&P (1) Aspiration pneumonia Status: Acute Current Visit: Yes (2) UGIB (upper gastrointestinal bleed) Status: Acute Current Visit: Yes (3) Anemia Status: Acute Current Visit: Yes (4) Hypomagnesemia Status: Acute Current Visit: Yes (5) Hyponatremia Status: Acute Current Visit: Yes (6) Severe sepsis Status: Acute Current Visit: Yes Assessment and Plan for All Diagnoses:: Patient had profound response to transfusion. Continue to monitor. Continue PPIs. May plan for EGD soon.
[2018-05-24 07:16] LABS: Basophils # 0.1 K/mm3 (0-0.2); Basophils % 0.2 % (0.1-2.0); Eosinophils # 0.1 K/mm3 (0.0-0.4); Eosinophils % 0.3 % (0.1-12.0); Hemoglobin 11.3 g/dL (12.2-16.2); Lymphocytes # 1.8 K/mm3 (0.7-4.5); Lymphocytes % 7.6 K/mm3 (10-50); Mean Corpuscular HGB Conc 32.4 g/dL (31.8-35.4); Mean Corpuscular Hemoglobin 30.4 pg (27.0-31.2); Mean Corpuscular Volume 93.8 fl (81-99); Mean Platelet Volume 7.1 fl (7.4-10.4); Monocytes # 0.7 K/mm3 (0.1-1.0); Monocytes % 3.2 % (1.7-9.3); Neutrophils # 20.5 K/mm3 (1.8-7.8); Neutrophils % 88.8 % (37.0-80.0); Platelet Count 176 K/mm3 (142-424); Red Blood Count 3.73 M/mm3 (4.20-5.40); Red Cell Distribution Width 18.1 % (11.5-17.5); White Blood Count 23.1 K/mm3 (4.8-10.8)
[2018-05-24 07:46] LABS: Albumin/Globulin Ratio 0.2 (1.1-1.8); Anion Gap 18.1 mEq/L (5-15); Bilirubin,Total 0.5 mg/dL (0.2-1.0); Calcium 7.3 mg/dL (8.5-10.1); Globulin 5.1 gm/dl (1.3-3.2); Potassium 4.1 mmoL/L (3.5-5.1); Total Protein,Serum 6.1 gm/dL (6.4-8.2)
[2018-05-24 08:29] LABS: Lymphocytes % 4 % (10-50); Neutrophils % 96 % (42-76); Total Cells Counted 100
--- NOTE | 2018-05-25 07:05 | Progress Note ---
Internal Medicine - PN: Subj *Date: 05/25/18 *Time: 07:02 Interval history: Patient denies complaints this morning. She denies shortness of breath or pain. She is refusing labs this morning. Exam Vital signs and Labs for Last 24 Hours: Temp Pulse Resp BP Pulse Ox 98.0 F 117 H 16 158/81 H 90 L 05/25/18 04:00 05/25/18 04:00 05/25/18 04:00 05/25/18 04:00 05/25/18 04:00 Laboratory Results - last 24 hr 05/23/18 05:52: Urine Color Dk yellow, Urine Appearance Turbid, Urine pH 6.0, Ur Specific [place] 1.010, Urine Protein 2+, Urine Glucose (UA) Negative, Urine Ketones Negative, Urine Blood 3+, Urine Nitrate Negative, Urine Bilirubin Negative, Urine Urobilinogen 0.2, Ur Leukocyte Esterase 2+ A, Urine RBC Tntc, Urine WBC 10-20, Ur Squamous Epith Cells Occasional, Urine Bacteria 4+ 05/24/18 07:10: WBC 23.1 H* D, RBC 3.73 L, Hgb 11.3 L, Hct 35.0 L, MCV 93.8, MCH 30.4, MCHC 32.4, RDW 18.1 H, Plt Count 176, MPV 7.1 L, Neut % (Auto) 88.8 H, Lymph % (Auto) 7.6 L, [place] % (Auto) 3.2, Eos % (Auto) 0.3, Baso % (Auto) 0.2, Neut # (Auto) 20.5 H, Lymph # (Auto) 1.8, [place] # (Auto) 0.7, Eos # (Auto) 0.1, Baso # (Auto) 0.1, Total Counted 100, Neutrophils % (Manual) 96 H, Lymphocytes % (Manual) 4 L, Platelet Estimate Normal, [place] Cells 1+ 05/24/18 07:10: Sodium 132 L, Potassium 4.1, Chloride 103, Carbon Dioxide 15 L D , Anion Gap 18.1 H, BUN 40 H, Creatinine 2.02 H, Estimated Creat Clear 26, Estimated GFR 25 L, Est GFR ( Amer) 30 L, Glucose 52 L, Calcium 7.3 L, Magnesium 1.2 L D, Total Bilirubin 0.5, AST 14 L, ALT 10 L, Alkaline Phosphatase 116, Total Protein 6.1 L, Albumin 1.0 L D, Globulin 5.1 H, Albumin/Globulin Ratio 0.2 L I & O for Last 24 hours: Intake & Output 05/22/18 05/23/18 05/24/18 05/25/18 11:59 11:59 11:59 11:59 Intake Total 0 / 0 3510 / 3510 240 / 240 Output Total 1050 / 1050 400 / 400 Balance 0 / 0 2460 / 2460 -160 / -160 Weight 116 lb 6 oz 121 lb 9 oz 131 lb 6 oz Microbiology Reports for the Last 24 Hours: Microbiology 05/23/18 05:52 Urine,Catheterized Urine Culture - Final Escherichia coli 05/23/18 05:52 Blood Blood Culture - Final Escherichia coli 05/23/18 05:52 Blood Blood Culture - Final Escherichia coli Narrative: Patient is awake and alert. Oropharynx is moist. Lungs have diminished breath sounds at the right base but rhonchi have cleared. Heart has a regular rate and rhythm. Abdomen is soft. Assessment and Plan (1) Aspiration pneumonia Current visit: Yes Status: Acute Qualifiers: Aspiration pneumonia type: unspecified Laterality: bilateral Lung location: unspecified part of lung Qualified Code(s): J69.0 - Pneumonitis due to inhalation of food and vomit Category: Medical Code(s): J69.0 - Pneumonitis due to inhalation of food and vomit (2) UGIB (upper gastrointestinal bleed) Current visit: Yes Status: Acute Category: Medical Code(s): K92.2 - Gastrointestinal hemorrhage, unspecified (3) Anemia Current visit: Yes Status: Acute Qualifiers: Anemia type: unspecified type Qualified Code(s): D64.9 - Anemia, unspecified Category: Medical Code(s): D64.9 - Anemia, unspecified (4) Hypomagnesemia Current visit: Yes Status: Acute Category: Medical Code(s): E83.42 - Hypomagnesemia (5) Hyponatremia Current visit: Yes Status: Acute Category: Medical Code(s): E87.1 - Hypo- osmolality and hyponatremia (6) Severe sepsis Current visit: Yes Status: Acute Category: Medical Code(s): A41.9 - Sepsis, unspecified organism; R65.20 - Severe sepsis without septic shock (7) E. coli sepsis Current visit: Yes Status: Acute Category: Medical Code(s): A41.51 - Sepsis due to Escherichia coli [E. coli] (8) E. coli UTI Current visit: Yes Status: Acute Category: Medical Code(s): N39.0 - Urinary tract infection, site not specified; B96.20 - Unspecified Escherichia coli [E. coli] as the cause of diseases classified elsewhere (9) group home (current) use of anticoagulants Current visit: Yes Status: Acute Category: Medical Code(s): Z79.01 - group home (current) use of anticoagulants - Assessment and plan all Dx Assessment and Plan for all problems:: Patient will need IV antibiotics to treat her infections. Patient has agreed to let a PICC line be inserted. This will make lab draws easier as well. Patient is improving. I have made her n.p.o. this morning in the event that surgery would want to proceed with EGD. H&H is pending at this time. If H&H is patient could possibly be discharged tomorrow
--- NOTE | 2018-05-25 07:45 | Progress Note ---
Subjective Patient reports: feels better Exam Vital signs and Labs for Last 24 Hours: Temp Pulse Resp BP Pulse Ox 97.8 F 95 H 18 153/86 H 93 L 05/25/18 07:40 05/25/18 07:40 05/25/18 07:40 05/25/18 07:40 05/25/18 07:40 Laboratory Results - last 24 hr 05/24/18 07:10: Total Counted 100, Neutrophils % (Manual) 96 H, Lymphocytes % (Manual) 4 L, Platelet Estimate Normal, [place] Cells 1+ 05/24/18 07:10: Sodium 132 L, Potassium 4.1, Chloride 103, Carbon Dioxide 15 L D , Anion Gap 18.1 H, BUN 40 H, Creatinine 2.02 H, Estimated Creat Clear 26, Estimated GFR 25 L, Est GFR ( Amer) 30 L, Glucose 52 L, Calcium 7.3 L, Magnesium 1.2 L D, Total Bilirubin 0.5, AST 14 L, ALT 10 L, Alkaline Phosphatase 116, Total Protein 6.1 L, Albumin 1.0 L D, Globulin 5.1 H, Albumin/Globulin Ratio 0.2 L I & O for Last 24 hours: Intake & Output 05/22/18 05/23/18 05/24/18 05/25/18 11:59 11:59 11:59 11:59 Intake Total 0 / 0 3510 / 3510 240 / 240 Output Total 1050 / 1050 400 / 400 Balance 0 / 0 2460 / 2460 -160 / -160 Weight 116 lb 6 oz 121 lb 9 oz 131 lb 6 oz Microbiology Reports for the Last 24 Hours: Microbiology 05/23/18 05:52 Urine,Catheterized Urine Culture - Final Escherichia coli 05/23/18 05:52 Blood Blood Culture - Final Escherichia coli 05/23/18 05:52 Blood Blood Culture - Final Escherichia coli - Constitutional no acute distress - *Routine Abdominal Exam Present: soft, tenderness Progress Note: A&P (1) Aspiration pneumonia Status: Acute Current Visit: Yes (2) UGIB (upper gastrointestinal bleed) Status: Acute Current Visit: Yes (3) Anemia Status: Acute Current Visit: Yes (4) Hypomagnesemia Status: Acute Current Visit: Yes (5) Hyponatremia Status: Acute Current Visit: Yes (6) Severe sepsis Status: Acute Current Visit: Yes (7) E. coli sepsis Status: Acute Current Visit: Yes (8) E. coli UTI Status: Acute Current Visit: Yes (9) longterm (current) use of anticoagulants Status: Acute Current Visit: Yes Assessment and Plan for All Diagnoses:: She has appreciable right upper quadrant tenderness with some guarding. Reportedly refusing blood draws this morning. Due to the persistent right upper quadrant tenderness I will plan to do a CT scan of the abdomen and pelvis today. Gallbladder pathology is an appreciable etiology with coffee-ground emesis possibly secondary to this. If the ultrasound is relatively unremarkable may plan for upper endoscopy tomorrow.
[2018-05-25 08:07] LABS: Basophils % 0.2 % (0.1-2.0); Eosinophils # 0.2 K/mm3 (0.0-0.4); Eosinophils % 1.3 % (0.1-12.0); Hematocrit 33.6 % (37.0-47.0); Hemoglobin 10.7 g/dL (12.2-16.2); Lymphocytes # 1.4 K/mm3 (0.7-4.5); Lymphocytes % 8.1 K/mm3 (10-50); Mean Corpuscular Hemoglobin 29.6 pg (27.0-31.2); Mean Corpuscular Volume 92.7 fl (81-99); Mean Platelet Volume 7.1 fl (7.4-10.4); Monocytes # 0.5 K/mm3 (0.1-1.0); Neutrophils # 14.8 K/mm3 (1.8-7.8); Neutrophils % 87.4 % (37.0-80.0); Platelet Count 184 K/mm3 (142-424); Red Blood Count 3.63 M/mm3 (4.20-5.40); Red Cell Distribution Width 18.3 % (11.5-17.5); White Blood Count 16.9 K/mm3 (4.8-10.8)
[2018-05-25 08:13] LABS: Anion Gap 16.9 mEq/L (5-15); Calcium 7.8 mg/dL (8.5-10.1); Potassium 3.9 mmoL/L (3.5-5.1)
[2018-05-25 08:33] LABS: Lymphocytes % 5 % (10-50); Monocytes % 3 % (2-9); Neutrophils % 90 % (42-76); Total Cells Counted 100
[2018-05-25 16:10] LABS: Hematocrit 35.4 % (37.0-47.0); Hemoglobin 11.5 g/dL (12.2-16.2)
[2018-05-26 06:57] LABS: Basophils % 0.2 % (0.1-2.0); Eosinophils # 0.1 K/mm3 (0.0-0.4); Hematocrit 33.4 % (37.0-47.0); Hemoglobin 10.8 g/dL (12.2-16.2); Lymphocytes # 1.1 K/mm3 (0.7-4.5); Lymphocytes % 9.2 K/mm3 (10-50); Mean Corpuscular HGB Conc 32.4 g/dL (31.8-35.4); Mean Corpuscular Hemoglobin 30.1 pg (27.0-31.2); Mean Platelet Volume 6.7 fl (7.4-10.4); Monocytes # 0.4 K/mm3 (0.1-1.0); Neutrophils # 10.7 K/mm3 (1.8-7.8); Neutrophils % 86.5 % (37.0-80.0); Platelet Count 167 K/mm3 (142-424); Red Blood Count 3.59 M/mm3 (4.20-5.40); Red Cell Distribution Width 18.4 % (11.5-17.5); White Blood Count 12.3 K/mm3 (4.8-10.8)
--- NOTE | 2018-05-26 07:17 | Progress Note ---
Internal Medicine - PN: Subj *Date: 05/26/18 *Time: 07:15 Interval history: Patient has no new complaints this morning. She tells me she did not sleep well. She denies shortness of breath or pain. Exam Vital signs and Labs for Last 24 Hours: Temp Pulse Resp BP Pulse Ox 97.6 F 96 H 16 176/97 H 91 L 05/26/18 04:00 05/26/18 04:00 05/26/18 04:00 05/26/18 04:00 05/26/18 04:00 Laboratory Results - last 24 hr 05/25/18 07:57: WBC 16.9 H D, RBC 3.63 L, Hgb 10.7 L, Hct 33.6 L, MCV 92.7, MCH 29.6, MCHC 32.0, RDW 18.3 H, Plt Count 184, MPV 7.1 L, Neut % (Auto) 87.4 H, Lymph % (Auto) 8.1 L, [place] % (Auto) 3.0, Eos % (Auto) 1.3, Baso % (Auto) 0.2, Neut # (Auto) 14.8 H, Lymph # (Auto) 1.4, [place] # (Auto) 0.5, Eos # (Auto) 0.2, Baso # (Auto) 0.0, Total Counted 100, Neutrophils % (Manual) 90 H, Band Neutrophils % 2.0, Lymphocytes % (Manual) 5 L, Monocytes % (Manual) 3, Platelet Estimate Normal, RBC Morphology Not Reportable, [place] Cells 1+, Schistocytes 1+ 05/25/18 07:57: Sodium 130 L, Potassium 3.9, Chloride 102, Carbon Dioxide 15 L, Anion Gap 16.9 H, BUN 39 H, Creatinine 2.16 H, Estimated Creat Clear 26, Estimated GFR 23 L, Est GFR ( Amer) 28 L, Glucose 94, Calcium 7.8 L 05/25/18 16:00: Hgb 11.5 L, Hct 35.4 L 05/26/18 06:41: WBC 12.3 H D, RBC 3.59 L, Hgb 10.8 L, Hct 33.4 L, MCV 93.0, MCH 30.1, MCHC 32.4, RDW 18.4 H, Plt Count 167, MPV 6.7 L, Neut % (Auto) 86.5 H, Lymph % (Auto) 9.2 L, [place] % (Auto) 3.0, Eos % (Auto) 1.0, Baso % (Auto) 0.2, Neut # (Auto) 10.7 H, Lymph # (Auto) 1.1, [place] # (Auto) 0.4, Eos # (Auto) 0.1, Baso # (Auto) 0.0 I & O for Last 24 hours: Intake & Output 05/23/18 05/24/18 05/25/18 05/26/18 11:59 11:59 11:59 11:59 Intake Total 150 / 150 3510 / 3510 240 / 240 240 / 240 Output Total 1050 / 1050 700 / 700 1550 / 1550 Balance 150 / 150 2460 / 2460 -460 / -460 -1310 / -1310 Weight 116 lb 6 oz 121 lb 9 oz 131 lb 6 oz Microbiology Reports for the Last 24 Hours: Microbiology 05/23/18 05:52 Urine,Catheterized Urine Culture - Final Escherichia coli 05/23/18 05:52 Blood Blood Culture - Final Escherichia coli 05/23/18 05:52 Blood Blood Culture - Final Escherichia coli Narrative: She has audible wheezing heard standing at bedside. Lungs have right-sided wheezes on exam. Heart has a regular rate and rhythm. Abdomen is soft with epigastric tenderness. Assessment and Plan (1) Aspiration pneumonia Current visit: Yes Status: Acute Qualifiers: Aspiration pneumonia type: unspecified Laterality: bilateral Lung location: unspecified part of lung Qualified Code(s): J69.0 - Pneumonitis due to inhalation of food and vomit Category: Medical Code(s): J69.0 - Pneumonitis due to inhalation of food and vomit (2) UGIB (upper gastrointestinal bleed) Current visit: Yes Status: Acute Category: Medical Code(s): K92.2 - Gastrointestinal hemorrhage, unspecified (3) Anemia Current visit: Yes Status: Acute Qualifiers: Anemia type: unspecified type Qualified Code(s): D64.9 - Anemia, unspecified Category: Medical Code(s): D64.9 - Anemia, unspecified (4) Hypomagnesemia Current visit: Yes Status: Acute Category: Medical Code(s): E83.42 - Hypomagnesemia (5) Hyponatremia Current visit: Yes Status: Acute Category: Medical Code(s): E87.1 - Hypo- osmolality and hyponatremia (6) Severe sepsis Current visit: Yes Status: Acute Category: Medical Code(s): A41.9 - Sepsis, unspecified organism; R65.20 - Severe sepsis without septic shock (7) E. coli sepsis Current visit: Yes Status: Acute Category: Medical Code(s): A41.51 - Sepsis due to Escherichia coli [E. coli] (8) E. coli UTI Current visit: Yes Status: Acute Category: Medical Code(s): N39.0 - Urinary tract infection, site not specified; B96.20 - Unspecified Escherichia coli [E. 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 EGD today 2. Continue antibiotics. As long as EGD does not reveal active bleeding patient will be discharged back to [facility] today to finish IV Invanz for a total of 10 days
[2018-05-26 07:19] LABS: Anion Gap 15.8 mEq/L (5-15); Calcium 7.7 mg/dL (8.5-10.1); Potassium 3.8 mmoL/L (3.5-5.1)
--- NOTE | 2018-05-26 07:20 | Discharge Summary ---
General - General Admission date:: 05/23/18 Discharge date: 05/26/18 HPI HPI: 8-year-old female resident of [facility] was sent to the ER after patient was found covered in coffee-ground emesis with low-grade fever and O2 sats in the 80s. Workup in the emergency department is revealed a right lower lobe pneumonia suspected to be due to aspiration. Patient was febrile with decreased O2 sats that did respond to application of oxygen via nasal cannula at 4 L/min. Also complained of some abdominal pain and she has been started on Protonix drip in anticipation of upper GI bleed. Patient had been on Eliquis until yesterday when [facility]. Hospital Course Hospital Course: Patient was admitted for treatment of aspiration pneumonia. Initially she was placed on clindamycin but this was switched to Levaquin when blood cultures returned positive. Cefepime was added due to resistance to Levaquin. Patient remained on Levaquin and cefepime. Patient had blood cultures as well as urine culture performed which both grew E. coli. To cover her pneumonia along with sepsis and UTI patient will be continued on Invanz. At discharge she will need Invanz for an additional week at a dose of 1 g/day intravenously through her PICC line. Shortly after admission patient became hypotensive and repeat labs showed a significant drop in her hemoglobin. She was suspected to have an upper GI bleed. She was started on a Protonix drip and general surgery was consulted. Patient was not stable enough for EGD at the time. She was maintained on Protonix drip for 72 hours. She was transfused 3 units of packed red blood cells and had excellent response to transfusion. She did not require transfusion the remainder of admission. On May 26 patient went for EGD by Carla Arvizu. EGD was negative for ulcer disease. Patient is on Eliquis. These medications were held prior to admission and will need to continue to be held at discharge. Patient is on multiple psychiatric medicines which were restarted once patient was lucid in the hospital. On May 26 patient returned to her baseline mental status. She was discharged back to [facility]. Mental status: Below average Rehab potential: Fair Prognosis: Fair Objective Vital signs: Temp Pulse Resp BP Pulse Ox 97.6 F 96 H 16 176/97 H 91 L 05/26/18 04:00 05/26/18 04:00 05/26/18 04:00 05/26/18 04:00 05/26/18 04:00 Results Labs on day of discharge: Labs from last 24 hours 05/26/18 05/25/18 05/25/18 06:41 16:00 07:57 WBC 12.3 H D RBC 3.59 L Hgb 10.8 L 11.5 L Hct 33.4 L 35.4 L MCV 93.0 MCH 30.1 MCHC 32.4 RDW 18.4 H Plt Count 167 MPV 6.7 L Neut % (Auto) 86.5 H Lymph % (Auto) 9.2 L [place] % (Auto) 3.0 Eos % (Auto) 1.0 Baso % (Auto) 0.2 Neut # (Auto) 10.7 H Lymph # (Auto) 1.1 [place] # (Auto) 0.4 Eos # (Auto) 0.1 Baso # (Auto) 0.0 Total Counted Neutrophils % (Manual) Band Neutrophils % Lymphocytes % (Manual) Monocytes % (Manual) Platelet Estimate RBC Morphology [place] Cells Schistocytes Sodium 130 L Potassium 3.9 Chloride 102 Carbon Dioxide 15 L Anion Gap 16.9 H BUN 39 H Creatinine 2.16 H Estimated Creat Clear 26 Estimated GFR 23 L Est GFR ( Amer) 28 L Glucose 94 Calcium 7.8 L 05/25/18 07:57 WBC 16.9 H D RBC 3.63 L Hgb 10.7 L Hct 33.6 L MCV 92.7 MCH 29.6 MCHC 32.0 RDW 18.3 H Plt Count 184 MPV 7.1 L Neut % (Auto) 87.4 H Lymph % (Auto) 8.1 L [place] % (Auto) 3.0 Eos % (Auto) 1.3 Baso % (Auto) 0.2 Neut # (Auto) 14.8 H Lymph # (Auto) 1.4 [place] # (Auto) 0.5 Eos # (Auto) 0.2 Baso # (Auto) 0.0 Total Counted 100 Neutrophils % (Manual) 90 H Band Neutrophils % 2.0 Lymphocytes % (Manual) 5 L Monocytes % (Manual) 3 Platelet Estimate Normal RBC Morphology Not Reportable [place] Cells 1+ Schistocytes 1+ Sodium Potassium Chloride Carbon Dioxide Anion Gap BUN Creatinine Estimated Creat Clear Estimated GFR Est GFR ( Amer) Glucose Calcium DS: Diagnosis - Discharge Diagnosis (1) Aspiration pneumonia Status: Acute (2) UGIB (upper gastrointestinal bleed) Status: Acute (3) Anemia Status: Acute (4) Hypomagnesemia Status: Acute (5) Hyponatremia Status: Acute (6) Severe sepsis Status: Acute (7) E. coli sepsis Status: Acute (8) E. 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: Acute Discharge Plan - Patient Discharge Instructions ACTIVITY: Continue current activity DIET: continue same diet - Follow up Plan Disposition: [facility] Home Medications: Home Medications Medication Instructions Recorded Confirmed Type ALPRAZolam [Xanax 1mg tab] 1 mg PO BID 05/02/18 05/23/18 History Benztropine Mesylate 1 mg PO BID 05/02/18 05/23/18 History Carvedilol [Coreg 12.5mg 12.5 mg PO BID 05/02/18 05/23/18 History Tablet] Mometasone/Formoterol [Dulera 100 2 puffs IH BID 05/02/18 05/23/18 History Mcg/5 Mcg Inhaler] NIFEdipine [Nifedipine ER] 30 mg PO DAILY 05/02/18 05/23/18 History OXcarbazepine [Oxcarbazepine] 150 mg PO BID 05/02/18 05/23/18 History Omeprazole [Omeprazole 20mg 20 mg PO DAILY 05/02/18 05/23/18 History Capsule] Quetiapine Fumarate [Seroquel] 400 mg PO HS 05/02/18 05/23/18 History Raloxifene HCl 60 mg PO DAILY 05/02/18 05/23/18 History Topiramate 25 mg PO BID 05/02/18 05/23/18 History Vitamin E 400 unit PO DAILY 05/02/18 05/23/18 History Apixaban [Eliquis] 5 mg PO BID 05/23/18 05/23/18 History Esomeprazole Magnesium [Nexium] 20 mg PO DAILY 05/23/18 05/23/18 History Ondansetron HCl [Ondansetron 8mg 4 mg PO Q8HP PRN 05/23/18 05/23/18 History Tablet] Oxycodone HCl/Acetaminophen 1 tab PO Q4HP PRN 05/23/18 05/23/18 History [Percocet 5/325mg tablet] Prescriptions/Medication Reconciliation: New Ertapenem Sodium [Invanz 1gm Vial] 1 gm IV DAILY #7 vial Continue Vitamin E 400 unit PO DAILY Topiramate 25 mg PO BID Raloxifene HCl 60 mg PO DAILY Quetiapine Fumarate [Seroquel] 400 mg PO HS OXcarbazepine [Oxcarbazepine] 150 mg PO BID NIFEdipine [Nifedipine ER] 30 mg PO DAILY Mometasone/Formoterol [Dulera 100 Mcg/5 Mcg Inhaler] 2 puffs IH BID Carvedilol [Coreg 12.5mg Tablet] 12.5 mg PO BID Benztropine Mesylate 1 mg PO BID ALPRAZolam [Xanax 1mg tab] 1 mg PO BID Ondansetron HCl [Ondansetron 8mg Tablet] 4 mg PO Q8HP PRN PRN Reason: Nausea Esomeprazole Magnesium [Nexium] 20 mg PO DAILY Omeprazole [Omeprazole 20mg Capsule] 20 mg PO DAILY Oxycodone HCl/Acetaminophen [Percocet 5/325mg tablet] 1 tab PO Q4HP PRN PRN Reason: pain Discontinued Apixaban [Eliquis] 5 mg PO BID
--- NOTE | 2018-05-26 07:28 | Procedure Note ---
- Procedure: Date: 05/26/18 Procedure Performed:: Esophagogastroduodenoscopy Indications:: Patient is a 62-year-old male patient. She is on Eliquis and aspirin. She was admitted several days ago with reported coffee-ground emesis. She had findings of significant sepsis and aspiration pneumonia. Patient was resuscitated. She did show some transient decrease in hemoglobin but then had hyper response to transfusion. Plan was made for upper endoscopy prior to consideration for discharge back to the custodial. Of note, the patient did have some right upper quadrant tenderness on examination and underwent CT scan of the abdomen yesterday which was unremarkable reguarding any acute inflammatory process. Performing Provider:: Rafa Arvizu MD Referring Provider:: Pascual Bell MD Sedation:: Propofol Procedure:: Patient was taken to endoscopy procedure room. She was positioned in lateral decubitus position. Adequate intravenous sedation was achieved with anesthesia titration of propofol. Olympus endoscope was inserted via the oropharynx and advanced to the esophagus. Overall esophagus appeared relatively unremarkable. Stomach was cannulated and insufflated and retroflexion revealed a small to moderate sliding hiatal hernia. There is some mild edema of the gastric lining but no evidence of any significant gastritis. Pylorus was traversed. Duodenal bulb and duodenal sweep were inspected and found to be relatively unremarkable. The endoscope was advanced and withdrawn several times through the duodenum for careful inspection and there was no evidence of any ulcer or duodenitis. Stomach was desufflated and the endoscope was withdrawn. Findings:: Hiatal hernia Recommendations:: No evidence of recent or active bleed Complications:: None Estimated blood obtained (mL): 0
--- NOTE | 2018-05-26 07:28 | Progress Note ---
[facility] Anesthesia Checklist - Structural Data Admitted From: Inpatient Planned Operative Procedure/s: egd Consent for Planned Operative Procedure(s) Verified: Yes - Airway Assessment C-Spine Mobility Assessed: Yes TMJ Mobility Assessed: Yes Dentition: Poor Dentition - Neurological Assessment Level of Consciousness: Awake, Alert, Disoriented, Restless - Anesthesia Plan Anesthesia Risk discussed: Yes Anesthesia Plan: Verified ASA Class: III Anesthesia Type: [facility] History I have reviewed the patient's past medical history: Yes Medical History: Reports:: Diabetes Mellitus Type 1 Other Medical History: Reports: Anemia, Other - *Social History Smoking Status: Current every day smoker Alcohol Intake: never Occupational Status: disabled Housing: long-term - Psychiatric History Expresses thoughts of harming self/others: None Suicide Plan Description: No Plan *Family Hx:: Unable to obtain
[2018-05-26 08:46] LABS: Lymphocytes % 6 % (10-50); Monocytes % 2 % (2-9); Neutrophils % 92 % (42-76); Total Cells Counted 100
--- NOTE | 2018-05-26 10:42 | Progress Note ---
Internal Medicine - PN: Subj *Date: 05/26/18 *Time: 10:42 Exam Vital signs and Labs for Last 24 Hours: Temp Pulse Resp BP Pulse Ox 98.8 F 113 H 18 169/88 H 94 L 05/26/18 07:45 05/26/18 08:19 05/26/18 07:45 05/26/18 07:45 05/26/18 08:19 Laboratory Results - last 24 hr 05/25/18 16:00: Hgb 11.5 L, Hct 35.4 L 05/26/18 06:41: WBC 12.3 H D, RBC 3.59 L, Hgb 10.8 L, Hct 33.4 L, MCV 93.0, MCH 30.1, MCHC 32.4, RDW 18.4 H, Plt Count 167, MPV 6.7 L, Neut % (Auto) 86.5 H, Lymph % (Auto) 9.2 L, [place] % (Auto) 3.0, Eos % (Auto) 1.0, Baso % (Auto) 0.2, Neut # (Auto) 10.7 H, Lymph # (Auto) 1.1, [place] # (Auto) 0.4, Eos # (Auto) 0.1, Baso # (Auto) 0.0, Total Counted 100, Neutrophils % (Manual) 92 H, Lymphocytes % (Manual) 6 L, Monocytes % (Manual) 2, Platelet Estimate Normal, [place] Cells 1+ 05/26/18 06:41: Sodium 134 L, Potassium 3.8, Chloride 106, Carbon Dioxide 16 L, Anion Gap 15.8 H, BUN 36 H, Creatinine 2.03 H, Estimated Creat Clear 28, Estimated GFR 25 L, Est GFR ( Amer) 30 L, Glucose 92, Calcium 7.7 L I & O for Last 24 hours: Intake & Output 05/23/18 05/24/18 05/25/18 05/26/18 23:59 23:59 23:59 23:59 Intake Total 3660 / 3660 240 / 240 240 / 240 20 / 20 Output Total 600 / 600 450 / 450 1900 / 1900 350 / 350 Balance 3060 / 3060 -210 / -210 -1660 / -1660 -330 / -330 Weight 52.787 kg 55.14 kg 59.591 kg Assessment and Plan (1) Aspiration pneumonia Current visit: Yes Status: Acute Qualifiers: Aspiration pneumonia type: unspecified Laterality: bilateral Lung location: unspecified part of lung Qualified Code(s): J69.0 - Pneumonitis due to inhalation of food and vomit Category: Medical Code(s): J69.0 - Pneumonitis due to inhalation of food and vomit (2) UGIB (upper gastrointestinal bleed) Current visit: Yes Status: Acute Category: Medical Code(s): K92.2 - Gastrointestinal hemorrhage, unspecified (3) Anemia Current visit: Yes Status: Acute Qualifiers: Anemia type: unspecified type Qualified Code(s): D64.9 - Anemia, unspecified Category: Medical Code(s): D64.9 - Anemia, unspecified (4) Hypomagnesemia Current visit: Yes Status: Acute Category: Medical Code(s): E83.42 - Hypomagnesemia (5) Hyponatremia Current visit: Yes Status: Acute Category: Medical Code(s): E87.1 - Hypo- osmolality and hyponatremia (6) Severe sepsis Current visit: Yes Status: Acute Category: Medical Code(s): A41.9 - Sepsis, unspecified organism; R65.20 - Severe sepsis without septic shock (7) E. coli sepsis Current visit: Yes Status: Acute Category: Medical Code(s): A41.51 - Sepsis due to Escherichia coli [E. coli] (8) E. coli UTI Current visit: Yes Status: Acute Category: Medical Code(s): N39.0 - Urinary tract infection, site not specified; B96.20 - Unspecified Escherichia coli [E. coli] as the cause of diseases classified elsewhere (9) prison (current) use of anticoagulants Current visit: Yes Status: Acute Category: Medical Code(s): Z79.01 - prison (current) use of anticoagulants The patient's infection will respond to the chosen ABx?: Yes Is the patient receiving the right drug, dose, and route?: Yes Could a more targeted ABx be ordered?: No (PATIENT ALSO RECEIVING CEFEPIME)
== END 2018-05-26 10:45 ==
LOC: ER 05:43 → 2ND 05:43 → OBSVTOIN 07:36 → 2ND 08:47
PROVIDERS: ADMIT Family Medicine; ATTEND Family Medicine

== ENCOUNTER → 2018-06-05 07:34 | Outpatient (CLI) | payer MEDICAID, SELFPAY ==
--- NOTE | 2018-06-05 07:36 | US_ITS ---
US abdomen limited History:Right upper quadrant pain and tenderness Ordering Physician:DALILA Mendieta Patient Age: 62 years Comparison:None Findings: Pancreas:Unremarkable. No obvious mass or abnormal fluid collection. No ductal dilatation Liver:No focal liver lesions demonstrated. Homogeneous echogenicity. No intrahepatic biliary ductal dilatation evident Right Kidney:Unremarkable. Normal size and echogenicity. No hydronephrosis Gallbladder:There are multiple small cholesterol polyps. There is a small persistent area of increased echogenicity along the posterior wall the gallbladder. This measures probably 6 mm and may be related to a small adherent stone. No significant posterior acoustical shadowing however is evident. No pericholecystic fluid or biliary dilatation. Impression: 1. Adenomyomatosis of the gallbladder. 2. Small nonshadowing adherent stone versus polyp of the posterior wall of the gallbladder
== END ==
PROVIDERS: PCP Emergency Medicine; Visit Provider Physician Assistant
DX: R11.10 Vomiting, unspecified (principal)
CPT/HCPCS: 76705

== ENCOUNTER → 2018-06-06 12:51 | Outpatient (CLI) | payer MEDICAID, SELFPAY ==
--- NOTE | 2018-06-06 12:55 | FL_ITS ---
FL barium swallow modified: 06/06/2018 12:55 PM CLINICAL HISTORY: Aspiration pneumonia ORDERING PHYSICIAN: Ashish Pimentel MD PATIENT AGE: 62 years Comparison: None TECHNIQUE: Patient administered varying consistencies of barium contrast, while viewed in lateral position under real-time fluoroscopy with cine recording. FLUOROSCOPY TIME: 3 minutes and 7 seconds The study was performed in conjunction with speech pathologist. Please see that report & recommendations. FINDINGS: Patient was given varying consistencies of barium. Minimal penetration with thin nectar and honey with some improvement with chin tuck. IMPRESSION:Minimal penetration with thin nectar and honey with some improvement with chin tuck. Please see speech pathologist report and recommendations.
--- NOTE | 2018-06-06 13:56 | HMH.SLMBS2 ---
Speech & Language Evaluation Speech/Language Mod Barium Swallow Start: 06/06/18 13:45 Freq: once Status: Complete Protocol: Document 06/06/18 13:45 ELSA (Rec: 06/06/18 13:55 ELSA [id number]) MBS Recommendations Diet Dietary Recommendations Dysphagia Mechanical Soft Ground Meats [place] Liquids Treatment/Strategies Strategy/Precaution Recommend Sitting Upright (90 deg) Chin Tuck Small Bites and Sips Alternate Liquids/Solids Mod Barium Swallow Impressions Summary and Impressions Oral Phase Impression No Impairment (WFL) Oral Phase Summary Ms. Floyd was given the following consistencies: thins via straw and open cup, nectar, honey, pudding, pureed , and mechanical soft. No oral phase impairments noted. Pharyngeal Phase Impression Minimal Impairment Pharyngeal Phase Summary It was noted that Ms. Floyd exhibited penetration to the vocal folds with thins, nectar , and honey. Chin tuinocencio was noted to have improvements with nectar and honey. Silent aspiration was noted for thin liquids after fatigue with a chin tuck. It is recommended that Ms. Floyd be placed on mechanical soft diet with ground meats with sauce/gravy with nectar thick liquids. ST to follow up at SNF for futher recommendations. Speech/Language MBS Assessment/Goals/Plan Assessment Date of Evaluation: 06/06/18 Evaluation Type Initial Certification Assessment/Problems Dysphagia Does Patient Qualify for Service No Qualify/Failure Comment Diet modfications made for retirement facility. Recommendations PHYSICIAN CERTIFICATION: The specified therapy services are required, authorized, and reviewed every 30 days. Diet Recommendations Dysphagia Mechanical Soft Liquid Type Recommendations [place] Consistency SL Swallow Guidelines Standard Aspiration Prec. Crush Meds Small OK/Crush large pill Dysphagia Swallow Precautions/Strategies Sitting Upright (90 deg) Chin Tuck Small Bites and Sips Alternate Liquids/Solids Plan Pt/Guardian verbally ack understanding
== END ==
PROVIDERS: PCP Emergency Medicine; Visit Provider Emergency Medicine
DX: R13.10 Dysphagia, unspecified (principal)
CPT/HCPCS: 70371; 92611

== ENCOUNTER 2018-06-26 23:59 | Inpatient (IN) ==
--- NOTE | 2018-06-27 00:23 | Emergency Department Note ---
ED Disposition Clinical Impression: UGIB (upper gastrointestinal bleed), Hyponatremia, Schizophrenia, chronic condition Leukocytosis Qualifiers: Leukocytosis type: unspecified Qualified Code(s): D72.829 - Elevated white blood cell count, unspecified Chronic renal insufficiency Qualifiers: Chronic kidney disease stage: unspecified stage Qualified Code(s): N18.9 - Chronic kidney disease, unspecified Aspiration pneumonia Qualifiers: Aspiration pneumonia type: unspecified Laterality: right Lung location: lower lobe of lung Qualified Code(s): J69.0 - Pneumonitis due to inhalation of food and vomit Dysphagia Qualifiers: Dysphagia type: unspecified Qualified Code(s): R13.10 - Dysphagia, unspecified Disposition: Admitted As Inpatient Condition on Discharge: Serious Instructions: DI for Acute Abdomen Referrals: Ashish Pimentel MD [Primary Care Provider] - - Critical Care Critical Care Time: No Attestation: On 06/26/18, the high probability of a clinically significant, sudden or life threatening deterioration of the following system(s) required my full and direct attention, intervention and personal management. The time I documented below is in addition to time spent performing reported procedures but includes the following listed in this critical care notation. Medical Decision Making - Medical Records Medical records reviewed: Yes: I reviewed the patient's medical records. - [place] Inquiry Pt receiving controlled substance: No Vital Signs: 06/27/18 00:01 06/27/18 01:45 06/27/18 03:08 Temperature 98.8 F Temperature Source Rectal Pulse Rate [Right Brachial] 127 H 117 H 130 H Respiratory Rate 18 18 20 Blood Pressure [Right Arm] 110/65 91/60 L 99/63 L Blood Pressure Mean [Right Arm] 80 70 75 02 Sat by Pulse Oximetry 95 98 93 L Oxygen Delivery Method Room Air Room Air Room Air - Lab Data Lab results reviewed: Yes: I reviewed the patient's lab results. Lab Results 06/27/18 00:35: WBC 32.6 H*, RBC 3.76 L, Hgb 11.1 L, Hct 34.9 L, MCV 92.7, MCH 29.6, MCHC 31.9, RDW 17.9 H, Plt Count 439 H, MPV 6.7 L, Neut % (Auto) 84.8 H, Lymph % (Auto) 10.1, [place] % (Auto) 4.7, Eos % (Auto) 0.3, Baso % (Auto) 0.2, Neut # (Auto) 27.7 H, Lymph # (Auto) 3.3, [place] # (Auto) 1.5 H, Eos # (Auto) 0.1, Baso # (Auto) 0.1, Total Counted 100, Neutrophils % (Manual) 93 H, Lymphocytes % (Manual) 6 L, Monocytes % (Manual) 1 L, Platelet Estimate Slight increase, Anisocytosis 1+ 06/27/18 00:35: Sodium 121 L, Potassium 3.6, Chloride 85 L, Carbon Dioxide 22, Anion Gap 17.6 H, BUN 46 H, Creatinine 2.26 H, Estimated Creat Clear 19, Estimated GFR 22 L, Est GFR ( Amer) 27 L, Glucose 127 H, Calcium 8.4 L, Total Bilirubin 0.5, AST 7 L, ALT 14, Alkaline Phosphatase 132 H, Total Protein 8.3 H D, Albumin 1.9 L, Globulin 6.4 H, Albumin/Globulin Ratio 0.3 L, Amylase 24 L, Lipase 108 06/27/18 00:35: Lactate 0.5 06/27/18 00:35: ESR 119 H 06/27/18 02:22: Urine Color Yellow, Urine Appearance Clear, Urine pH 5.5, Ur Specific [place] 1.020, Urine Protein Trace, Urine Glucose (UA) Negative, Urine Ketones Trace, Urine Blood 1+, Urine Nitrate Negative, Urine Bilirubin Negative, Urine Urobilinogen 0.2, Ur Leukocyte Esterase Negative, Urine WBC Occasional, Urine Bacteria 1+, Urine Mucus Trace Result diagrams: 06/27/18 00:35 06/27/18 00:35 Orders (Tests/Meds): ED MEDICATIONS Discontinued Medications Generic Name Dose Route Start Last Admin Trade Name Freq PRN Reason Stop Dose Admin Sodium Chloride 1,000 mls @ 999 mls/hr 06/27/18 00:30 06/27/18 00:19 Sod Chlor 0.9% 1000ml Bag IV 06/27/18 01:30 999 mls/hr .Q1H1M NILS Administration Sodium Chloride 1,000 mls @ 999 mls/hr 06/27/18 02:00 06/27/18 01:48 Sod Chlor 0.9% 1000ml Bag IV 06/27/18 03:00 999 mls/hr .Q1H1M NILS Administration ORDERS Category Date Time Status CT abdomen pelvis wo con Stat Cat Scan 06/27/18 00:13 Ordered CXR --portable [XR chest portable] Stat Exams 06/27/18 00:45 Taken Peripheral Smear Review Routine Lab 06/27/18 02:47 Ordered Urinalysis and Microscopic Stat Lab 06/27/18 02:22 Ordered Blood Culture Stat Micro 06/27/18 00:35 Received - Radiology Data #1 Image(s): Chest Image Reviewed: Yes I reviewed the patient's radiology image Preliminary Findings: Abnormal (nonspecific) Nausea/Vomiting/Diarrhea HPI - General Chief complaint: Abdominal Pain Stated complaint: abd pain Time Seen by Provider: 06/27/18 00:05 Mode of Arrival: EMS Source of Information: Patient, EMS, Medical Record Limitations: Physical Limitations Description of Symptoms (Recalled from ER Triage Doc. by RN): Pt is having abd pain, with N/V that started today, and states she hasn't had a bm in several days. - History of Present Illness HPI Narrative: this wf was sent from [facility] for abd pain and vomiting which had started today - pt is poor historian and could not provide any details - she had recent uti and had upper gi bleed in past - no melena reported - MD complaint: nausea, vomiting, abdominal pain Onset (ago): day(s) Associated Abdominal Pain: Yes Location of pain: diffuse Severity: moderate Associated symptoms: denies other symptoms - Related Data Home Medications Medication Instructions Recorded Confirmed ALPRAZolam [Xanax 1mg tab] 1 mg PO BID 05/02/18 06/27/18 Benztropine Mesylate 1 mg PO BID 05/02/18 06/27/18 Carvedilol [Coreg 12.5mg 12.5 mg PO BID 05/02/18 06/27/18 Tablet] Mometasone/Formoterol [Dulera 100 2 puffs IH BID 05/02/18 06/27/18 Mcg/5 Mcg Inhaler] NIFEdipine [Nifedipine ER] 30 mg PO DAILY 05/02/18 06/27/18 OXcarbazepine [Oxcarbazepine] 150 mg PO BID 05/02/18 06/27/18 Omeprazole [Omeprazole 20mg 20 mg PO DAILY 05/02/18 06/27/18 Capsule] Quetiapine Fumarate [Seroquel] 400 mg PO HS 05/02/18 06/27/18 Raloxifene HCl 60 mg PO DAILY 05/02/18 06/27/18 Topiramate 25 mg PO BID 05/02/18 06/27/18 Vitamin E 400 unit PO DAILY 05/02/18 06/27/18 Esomeprazole Magnesium [Nexium] 20 mg PO DAILY 05/23/18 06/27/18 Ondansetron HCl [Ondansetron 8mg 4 mg PO Q8HP PRN 05/23/18 06/27/18 Tablet] Oxycodone HCl/Acetaminophen 1 tab PO Q4HP PRN 05/23/18 06/27/18 [Percocet 5/325mg tablet] Allergies Allergy/AdvReac Type Severity Reaction Status Date / Time doxepin Allergy Verified 06/27/18 00:15 Penicillins Allergy Verified 06/27/18 00:15 [facility] History I have reviewed the patient's past medical history: Yes Medical History: Reports:: Diabetes Mellitus Type 1 Other Medical History: Reports: Anemia, Other Comment: Small bowel obstruction; congenital malrotation; aspiration pneumonia; schizophrenia; hydronephrosis; HTN; COPD; pneumonia; NIDDM; acute respiratory failure; malnutrition; hand ischemia; hypothermia; hypokalemia; hypomagnesemia; anemia due to blood loss; hypotension; feeding difficulty; seizure disorder; anxiety. - Social History Smoking Status: Current every day smoker Alcohol Intake: never Occupational Status: disabled Housing: [facility] - Psychiatric History Expresses thoughts of harming self/others: None Suicide Plan Description: No Plan Family Hx:: Unable to obtain ROS Obtained: Yes All systems reviewed & no additional complaints - Constitutional Constitutional: Denies fever(s) - Eyes Eyes: Denies change in vision - ENT Ears, Nose, Mouth, and Throat: Denies sore throat - Cardiovascular Cardiovascular: Denies chest pain - Respiratory Respiratory: No cough - Gastrointestinal Gastrointestingal: Reports: abdominal pain, nausea, vomiting. Denies: diarrhea, vomiting blood - Genitourinary Female Genitourinary: Denies dysuria, Denies hematuria - Musculoskeletal Musculoskeletal: Denies joint pain, Denies joint swelling - Integumentary/Breasts Skin/Breast: Denies rash - Neurologic Neurologic: Denies seizure-like activity Physical Exam - General General appearance: in no apparent distress - Head Head exam: normocephalic - Eye Eye exam: Present: PERRL, EOMI. Absent: scleral icterus - ENT ENT exam: Present: mucous membranes dry - Neck Neck exam: Present: trachea midline - Respiratory Respiratory exam: Present: other (dec bs bilat ). Absent: respiratory distress - Cardiovascular Cardiovascular exam: Present: regular rate, systolic murmur, +S4 - Abdominal Exam Abdominal exam: Present: soft, tenderness. Absent: guarding, rebound, rigidity Abdominal tenderness: Present: epigastrium - Extremities Exam Extremities exam: Absent: calf tenderness - Neurological Exam Neurological exam: Present: alert, CN II-XII intact - Psychiatric Psychiatric exam: Absent: anxious - Skin Skin exam: Absent: rash
[2018-06-27 00:48] LABS: Basophils # 0.1 K/mm3 (0-0.2); Basophils % 0.2 % (0.1-2.0); Eosinophils # 0.1 K/mm3 (0.0-0.4); Eosinophils % 0.3 % (0.1-12.0); Hematocrit 34.9 % (37.0-47.0); Hemoglobin 11.1 g/dL (12.2-16.2); Lymphocytes # 3.3 K/mm3 (0.7-4.5); Lymphocytes % 10.1 % (10-50); Mean Corpuscular HGB Conc 31.9 g/dL (31.8-35.4); Mean Corpuscular Hemoglobin 29.6 pg (27.0-31.2); Mean Corpuscular Volume 92.7 fl (81-99); Mean Platelet Volume 6.7 fl (7.4-10.4); Monocytes # 1.5 K/mm3 (0.1-1.0); Monocytes % 4.7 % (1.7-9.3); Neutrophils # 27.7 K/mm3 (1.8-7.8); Neutrophils % 84.8 % (37.0-80.0); Platelet Count 439 K/mm3 (142-424); Red Blood Count 3.76 M/mm3 (4.20-5.40); Red Cell Distribution Width 17.9 % (11.5-17.5); White Blood Count 32.6 K/mm3 (4.8-10.8)
[2018-06-27 00:58] LABS: Albumin Level 1.9 gm/dL (3.4-5.0); Albumin/Globulin Ratio 0.3 (1.1-1.8); Anion Gap 17.6 mEq/L (5-15); Bilirubin,Total 0.5 mg/dL (0.2-1.0); Calcium 8.4 mg/dL (8.5-10.1); Globulin 6.4 gm/dl (1.3-3.2); Potassium 3.6 mmoL/L (3.5-5.1); Total Protein,Serum 8.3 gm/dL (6.4-8.2)
[2018-06-27 02:25] LABS: Microscopic, Urine URINE MICROSCOPIC (MICROSCOPIC)
[2018-06-27 02:32] LABS: Appearance,Urine CLEAR (Clear); Blood, Urine 1+ (Negative); Color,Urine YELLOW (Yellow); Glucose,Urine (UA) Negative (Negative); Ketones,Urine TRACE (Negative); Leukocyte Esterase,Urine Negative (Negative); PH,Urine 5.5 (5.0-8.5); Protein,Urine TRACE (Negative); Urobilinogen,Urine 0.2 EU/dl (0.2)
[2018-06-27 02:35] LABS: Bilirubin,Urine Negative (Negative)
[2018-06-27 02:49] LABS: Anisocytosis 1+; Lymphocytes % 6 % (10-50); Monocytes % 1 % (2-9); Neutrophils % 93 % (42-76); Total Cells Counted 100
[2018-06-27 02:53] LABS: Bacteria,Urine 1+ /lpf; Mucus,Urine Trace /lpf; WBC,Urine Occasional #/hpf (0-3)
--- NOTE | 2018-06-27 07:09 | Pharmacy Consult Notes ---
[facility] Pharmacy VTE Monitoring - Patient Demographics Admission date: 06/27/18 Report Date: 06/27/18 Time: 07:08 Allergies/Adverse Reactions: Patient Allergies doxepin Allergy (Verified 06/27/18 00:15) Penicillins Allergy (Verified 06/27/18 00:15) Height: 1.5 m Weight: 43.545 kg Patient Problems: Current Active Problems UGIB (upper gastrointestinal bleed) (Acute) Aspiration pneumonia (Acute) Leukocytosis (Acute) Hyponatremia (Acute) Chronic renal insufficiency (Acute) Dysphagia (Acute) Schizophrenia, chronic condition (Chronic) - VTE Risk Labs: VTE Related Lab Results Hgb 11.1 g/dL (12.2-16.2) L 06/27/18 00:35 Hct 34.9 % (37.0-47.0) L 06/27/18 00:35 Plt Count 439 K/mm3 (142-424) H 06/27/18 00:35 BUN 46 mg/dL (7-18) H 06/27/18 00:35 Creatinine 2.26 mg/dL (0.55-1.02) H 06/27/18 00:35 Estimated Creat Clear 19 mL/min (50-200) 06/27/18 00:35 Was VTE Risk Assessment Performed: Yes VTE Risk Level: Moderate Risk - Prophylaxis VTE Prophylaxis Ordered?: Yes Types of VTE Prophylaxis: TEDS Knee High Location of Applied Device: Bilateral Lower Extremeties - VTE Diagnosis Confirmed Treatment or plan recommended: Continue Current Treatment
[2018-06-27 07:54] LABS: Basophils % 0.1 % (0.1-2.0); Eosinophils % 0.2 % (0.1-12.0); Hematocrit 34.8 % (37.0-47.0); Lymphocytes % 8.2 % (10-50); Mean Corpuscular HGB Conc 31.5 g/dL (31.8-35.4); Mean Corpuscular Hemoglobin 29.9 pg (27.0-31.2); Mean Corpuscular Volume 95.1 fl (81-99); Monocytes # 1.1 K/mm3 (0.1-1.0); Monocytes % 4.5 % (1.7-9.3); Platelet Count 333 K/mm3 (142-424); Red Blood Count 3.66 M/mm3 (4.20-5.40); Red Cell Distribution Width 17.7 % (11.5-17.5); White Blood Count 24.1 K/mm3 (4.8-10.8)
--- NOTE | 2018-06-27 08:08 | Consult Report ---
*Admission Date: 06/27/18 *Chief complaint: N/V/D *History of present illness: This is a 63-year-old female seen in consultation from her primary service for evaluation concerning possible gastrointestinal hemorrhage. She was admitted after presenting to the emergency department with abdominal pain and vomiting. She is an exceptionally poor historian and has a known history of cognitive deficit. She was recently admitted with similar symptoms and diagnosed with possible upper gastrointestinal hemorrhage. The surgical service was consulted at that time and she did undergo EGD on May 26, [address] Arvizu. She did not have any obvious signs of severe gastritis or peptic ulcer disease. She also did not have any signs of recent hemorrhage noted on this procedure. Please see HPI forwarded from emergency department evaluation below: this wf was sent from [facility] for abd pain and vomiting which had started today - pt is poor historian and could not provide any details - she had recent uti and had upper gi bleed in past - no melena reported - Review of Systems - Review of Systems Review of systems:: unable to obtain - *Neurologic Denies seizure-like activity [facility] History Medical History: Reports:: Diabetes Mellitus Type 1, Hypertension Other Medical History: Reports: Anemia, Other - *Social History Smoking Status: Current every day smoker Alcohol Intake: never Occupational Status: disabled Housing: penitentiary - Psychiatric History Expresses thoughts of harming self/others: None Suicide Plan Description: No Plan *Family Hx:: Unable to obtain Meds Home Medications Medication Instructions Recorded Confirmed Type ALPRAZolam [Xanax 1mg tab] 1 mg PO BID 05/02/18 06/27/18 History Benztropine Mesylate 1 mg PO BID 05/02/18 06/27/18 History Carvedilol [Coreg 12.5mg 12.5 mg PO BID 05/02/18 06/27/18 History Tablet] Mometasone/Formoterol [Dulera 100 2 puffs IH BID 05/02/18 06/27/18 History Mcg/5 Mcg Inhaler] NIFEdipine [Nifedipine ER] 30 mg PO DAILY 05/02/18 06/27/18 History OXcarbazepine [Oxcarbazepine] 150 mg PO BID 05/02/18 06/27/18 History Omeprazole [Omeprazole 20mg 20 mg PO DAILY 05/02/18 06/27/18 History Capsule] Quetiapine Fumarate [Seroquel] 400 mg PO HS 05/02/18 06/27/18 History Raloxifene HCl 60 mg PO DAILY 05/02/18 06/27/18 History Topiramate 25 mg PO BID 05/02/18 06/27/18 History Vitamin E 400 unit PO DAILY 05/02/18 06/27/18 History Esomeprazole Magnesium [Nexium] 20 mg PO DAILY 05/23/18 06/27/18 History Ondansetron HCl [Ondansetron 8mg 4 mg PO Q8HP PRN 05/23/18 06/27/18 History Tablet] Oxycodone HCl/Acetaminophen 1 tab PO Q4HP PRN 05/23/18 06/27/18 History [Percocet 5/325mg tablet] Calcium Carbonate/Vitamin D3 1 each PO BID 06/27/18 06/27/18 History [Calcium 500-Vit D3 400 Tablet] Allergies Allergy/AdvReac Type Severity Reaction Status Date / Time doxepin Allergy Verified 06/27/18 00:15 Penicillins Allergy Verified 06/27/18 00:15 Exam Vital signs and Labs for Last 24 Hours: Temp Pulse Resp BP Pulse Ox 98.1 F 69 20 110/70 94 L 06/27/18 08:00 06/27/18 08:00 06/27/18 08:00 06/27/18 08:00 06/27/18 08:00 Laboratory Results - last 24 hr 06/27/18 00:35: WBC 32.6 H*, RBC 3.76 L, Hgb 11.1 L, Hct 34.9 L, MCV 92.7, MCH 29.6, MCHC 31.9, RDW 17.9 H, Plt Count 439 H, MPV 6.7 L, Neut % (Auto) 84.8 H, Lymph % (Auto) 10.1, [place] % (Auto) 4.7, Eos % (Auto) 0.3, Baso % (Auto) 0.2, Neut # (Auto) 27.7 H, Lymph # (Auto) 3.3, [place] # (Auto) 1.5 H, Eos # (Auto) 0.1, Baso # (Auto) 0.1, Total Counted 100, Neutrophils % (Manual) 93 H, Lymphocytes % (Manual) 6 L, Monocytes % (Manual) 1 L, Platelet Estimate Slight increase, Anisocytosis 1+ 06/27/18 00:35: Sodium 121 L, Potassium 3.6, Chloride 85 L, Carbon Dioxide 22, Anion Gap 17.6 H, BUN 46 H, Creatinine 2.26 H, Estimated Creat Clear 19, Estimated GFR 22 L, Est GFR ( Amer) 27 L, Glucose 127 H, Calcium 8.4 L, Total Bilirubin 0.5, AST 7 L, ALT 14, Alkaline Phosphatase 132 H, Total Protein 8.3 H D, Albumin 1.9 L, Globulin 6.4 H, Albumin/Globulin Ratio 0.3 L, Amylase 24 L, Lipase 108 06/27/18 00:35: Lactate 0.5 06/27/18 00:35: ESR 119 H 06/27/18 02:22: Urine Color Yellow, Urine Appearance Clear, Urine pH 5.5, Ur Specific [place] 1.020, Urine Protein Trace, Urine Glucose (UA) Negative, Urine Ketones Trace, Urine Blood 1+, Urine Nitrate Negative, Urine Bilirubin Negative, Urine Urobilinogen 0.2, Ur Leukocyte Esterase Negative, Urine WBC Occasional, Urine Bacteria 1+, Urine Mucus Trace 06/27/18 06:08: POC Glucose 84 06/27/18 06:48: WBC 24.1 H* D, RBC 3.66 L, Hgb 11.0 L, Hct 34.8 L, MCV 95.1, MCH 29.9, MCHC 31.5 L, RDW 17.7 H, Plt Count 333, MPV 8.0, Neut % (Auto) 87.0 H, Lymph % (Auto) 8.2 L, [place] % (Auto) 4.5, Eos % (Auto) 0.2, Baso % (Auto) 0.1, Neut # (Auto) 21.0 H, Lymph # (Auto) 2.0, [place] # (Auto) 1.1 H, Eos # (Auto) 0.0, Baso # (Auto) 0.0 I & O for Last 24 hours: Intake & Output 06/24/18 06/25/18 06/26/18 06/27/18 11:59 11:59 11:59 11:59 Weight 96 lb - Constitutional no acute distress - *Routine Abdominal Exam Present: soft. Absent: distended Results - Labs 06/27/18 06:48 06/27/18 00:35 Laboratory Results - last 24 hr 06/27/18 00:35: WBC 32.6 H*, RBC 3.76 L, Hgb 11.1 L, Hct 34.9 L, MCV 92.7, MCH 29.6, MCHC 31.9, RDW 17.9 H, Plt Count 439 H, MPV 6.7 L, Neut % (Auto) 84.8 H, Lymph % (Auto) 10.1, [place] % (Auto) 4.7, Eos % (Auto) 0.3, Baso % (Auto) 0.2, Neut # (Auto) 27.7 H, Lymph # (Auto) 3.3, [place] # (Auto) 1.5 H, Eos # (Auto) 0.1, Baso # (Auto) 0.1, Total Counted 100, Neutrophils % (Manual) 93 H, Lymphocytes % (Manual) 6 L, Monocytes % (Manual) 1 L, Platelet Estimate Slight increase, Anisocytosis 1+ 06/27/18 00:35: Sodium 121 L, Potassium 3.6, Chloride 85 L, Carbon Dioxide 22, Anion Gap 17.6 H, BUN 46 H, Creatinine 2.26 H, Estimated Creat Clear 19, Estimated GFR 22 L, Est GFR ( Amer) 27 L, Glucose 127 H, Calcium 8.4 L, Total Bilirubin 0.5, AST 7 L, ALT 14, Alkaline Phosphatase 132 H, Total Protein 8.3 H D, Albumin 1.9 L, Globulin 6.4 H, Albumin/Globulin Ratio 0.3 L, Amylase 24 L, Lipase 108 06/27/18 00:35: Lactate 0.5 06/27/18 00:35: ESR 119 H 06/27/18 02:22: Urine Color Yellow, Urine Appearance Clear, Urine pH 5.5, Ur Specific [place] 1.020, Urine Protein Trace, Urine Glucose (UA) Negative, Urine Ketones Trace, Urine Blood 1+, Urine Nitrate Negative, Urine Bilirubin Negative, Urine Urobilinogen 0.2, Ur Leukocyte Esterase Negative, Urine WBC Occasional, Urine Bacteria 1+, Urine Mucus Trace 06/27/18 06:08: POC Glucose 84 06/27/18 06:48: WBC 24.1 H* D, RBC 3.66 L, Hgb 11.0 L, Hct 34.8 L, MCV 95.1, MCH 29.9, MCHC 31.5 L, RDW 17.7 H, Plt Count 333, MPV 8.0, Neut % (Auto) 87.0 H, Lymph % (Auto) 8.2 L, [place] % (Auto) 4.5, Eos % (Auto) 0.2, Baso % (Auto) 0.1, Neut # (Auto) 21.0 H, Lymph # (Auto) 2.0, [place] # (Auto) 1.1 H, Eos # (Auto) 0.0, Baso # (Auto) 0.0 - Imaging Additional studies: Below is a forwarded copy of the patient's esophagogastroduodenoscopy performed by Dr. Arvizu on May 26 this year: Procedure: Date: 05/26/18 Procedure Performed:: Esophagogastroduodenoscopy Indications:: Patient is a 62-year-old male patient. She is on Eliquis and aspirin. She was admitted several days ago with reported coffee-ground emesis. She had findings of significant sepsis and aspiration pneumonia. Patient was resuscitated. She did show some transient decrease in hemoglobin but then had hyper response to transfusion. Plan was made for upper endoscopy prior to consideration for [facility]. Of note, the patient did have some right upper quadrant tenderness on examination and underwent CT scan of the abdomen yesterday which was unremarkable reguarding any acute inflammatory process. Performing Provider:: Rafa Arvizu MD Referring Provider:: Pascual Bell MD Sedation:: Propofol Procedure:: Patient was taken to endoscopy procedure room. She was positioned in lateral decubitus position. Adequate intravenous sedation was achieved with anesthesia titration of propofol. Olympus endoscope was inserted via the oropharynx and advanced to the esophagus. Overall esophagus appeared relatively unremarkable. Stomach was cannulated and insufflated and retroflexion revealed a small to moderate sliding hiatal hernia. There is some mild edema of the gastric lining but no evidence of any significant gastritis. Pylorus was traversed. Duodenal bulb and duodenal sweep were inspected and found to be relatively unremarkable. The endoscope was advanced and withdrawn several times through the duodenum for careful inspection and there was no evidence of any ulcer or duodenitis. Stomach was desufflated and the endoscope was withdrawn. Findings:: Hiatal hernia Recommendations:: No evidence of recent or active bleed Complications:: None Estimated blood obtained (mL): 0 Documented By: Rafa Arvizu MD 05/26/18724 Signed By: <Electronically signed by Rafa Arvizu MD> 05/26/18727 Assessment and Plan (1) Aspiration pneumonia Current visit: Yes Status: Acute Qualifiers: Aspiration pneumonia type: unspecified Laterality: right Lung location: lower lobe of lung Qualified Code(s): J69.0 - Pneumonitis due to inhalation of food and vomit Category: Medical Code(s): J69.0 - Pneumonitis due to inhalation of food and vomit (2) Chronic renal insufficiency Current visit: Yes Status: Acute Qualifiers: Chronic kidney disease stage: unspecified stage Qualified Code(s): N18.9 - Chronic kidney disease, unspecified Category: Medical Code(s): N18.9 - Chronic kidney disease, unspecified (3) Leukocytosis Current visit: Yes Status: Acute Qualifiers: Leukocytosis type: unspecified Qualified Code(s): D72.829 - Elevated white blood cell count, unspecified Category: Medical Code(s): D72.829 - Elevated white blood cell count, unspecified (4) UGIB (upper gastrointestinal bleed) Current visit: Yes Status: Acute Category: Medical Code(s): K92.2 - Gastrointestinal hemorrhage, unspecified The patient has multiple comorbidities conditions and has recently undergone esophagogastroduodenoscopy revealing no significant abnormality. Her anemia could be secondary to gastrointestinal hemorrhage, but is most likely severely exacerbated by chronic renal insufficiency. She does not have evidence of significant acute upper gastrointestinal blood loss at this time. She does have evidence of likely pneumonitis/pneumonia in addition to other comorbid conditions. The risks associated with procedures requiring sedation (such as repeating her esophagogastroduodenoscopy) likely outweigh any benefit. I would not recommend repeating endoscopy at this time. Serial hemoglobin/hematocrit. Continue proton pump inhibition. Blood transfusions as needed. Consider NG tube placement if significant emesis persists. (5) Anemia Current visit: No Status: Acute Qualifiers: Anemia type: unspecified type Qualified Code(s): D64.9 - Anemia, unspecified Category: Medical Code(s): D64.9 - Anemia, unspecified
[2018-06-27 08:45] LABS: Anion Gap 16.5 mEq/L (5-15); Calcium 7.9 mg/dL (8.5-10.1); Potassium 3.5 mmoL/L (3.5-5.1)
--- NOTE | 2018-06-27 09:43 | Progress Note ---
Internal Medicine - PN: Subj *Date: 06/27/18 *Time: 09:43 Exam Vital signs and Labs for Last 24 Hours: Temp Pulse Resp BP Pulse Ox 98.1 F 69 20 110/70 94 L 06/27/18 08:00 06/27/18 08:00 06/27/18 08:00 06/27/18 08:00 06/27/18 08:00 Laboratory Results - last 24 hr 06/27/18 00:35: WBC 32.6 H*, RBC 3.76 L, Hgb 11.1 L, Hct 34.9 L, MCV 92.7, MCH 29.6, MCHC 31.9, RDW 17.9 H, Plt Count 439 H, MPV 6.7 L, Neut % (Auto) 84.8 H, Lymph % (Auto) 10.1, [place] % (Auto) 4.7, Eos % (Auto) 0.3, Baso % (Auto) 0.2, Neut # (Auto) 27.7 H, Lymph # (Auto) 3.3, [place] # (Auto) 1.5 H, Eos # (Auto) 0.1, Baso # (Auto) 0.1, Total Counted 100, Neutrophils % (Manual) 93 H, Lymphocytes % (Manual) 6 L, Monocytes % (Manual) 1 L, Platelet Estimate Slight increase, Anisocytosis 1+ 06/27/18 00:35: Sodium 121 L, Potassium 3.6, Chloride 85 L, Carbon Dioxide 22, Anion Gap 17.6 H, BUN 46 H, Creatinine 2.26 H, Estimated Creat Clear 19, Estimated GFR 22 L, Est GFR ( Amer) 27 L, Glucose 127 H, Calcium 8.4 L, Total Bilirubin 0.5, AST 7 L, ALT 14, Alkaline Phosphatase 132 H, Total Protein 8.3 H D, Albumin 1.9 L, Globulin 6.4 H, Albumin/Globulin Ratio 0.3 L, Amylase 24 L, Lipase 108 06/27/18 00:35: Lactate 0.5 06/27/18 00:35: ESR 119 H 06/27/18 02:22: Urine Color Yellow, Urine Appearance Clear, Urine pH 5.5, Ur Specific [place] 1.020, Urine Protein Trace, Urine Glucose (UA) Negative, Urine Ketones Trace, Urine Blood 1+, Urine Nitrate Negative, Urine Bilirubin Negative, Urine Urobilinogen 0.2, Ur Leukocyte Esterase Negative, Urine WBC Occasional, Urine Bacteria 1+, Urine Mucus Trace 06/27/18 06:08: POC Glucose 84 06/27/18 06:48: WBC 24.1 H* D, RBC 3.66 L, Hgb 11.0 L, Hct 34.8 L, MCV 95.1, MCH 29.9, MCHC 31.5 L, RDW 17.7 H, Plt Count 333, MPV 8.0, Neut % (Auto) 87.0 H, Lymph % (Auto) 8.2 L, [place] % (Auto) 4.5, Eos % (Auto) 0.2, Baso % (Auto) 0.1, Neut # (Auto) 21.0 H, Lymph # (Auto) 2.0, [place] # (Auto) 1.1 H, Eos # (Auto) 0.0, Baso # (Auto) 0.0 06/27/18 08:15: Sodium 126 L, Potassium 3.5, Chloride 90 L, Carbon Dioxide 23, Anion Gap 16.5 H, BUN 43 H, Creatinine 1.87 H, Estimated Creat Clear 22, Estimated GFR 27 L, Est GFR ( Amer) 33 L D, Glucose 109 H, Calcium 7.9 L I & O for Last 24 hours: Intake & Output 06/24/18 06/25/18 06/26/18 06/27/18 11:59 11:59 11:59 11:59 Weight 96 lb - *Routine HEENT Exam Head: Present: normocephalic Eye: Present: PERRL ENT: Present: mucous membranes moist - *Routine Neck Exam Present: supple. Absent: lymphadenopathy - *Routine Respiratory Exam Present: diminished air movement - *Routine Cardiovascular Exam Present: tachycardia - *Routine Abdominal Exam Present: soft, tenderness, distended - *Routine Extremities Exam Absent: cyanosis, clubbing, edema - *Routine Skin Exam Present: warm. Absent: rash - *Routine Neurological Exam Present: alert Assessment and Plan (1) Aspiration pneumonia Current visit: Yes Status: Acute Qualifiers: Aspiration pneumonia type: unspecified Laterality: right Lung location: lower lobe of lung Qualified Code(s): J69.0 - Pneumonitis due to inhalation of food and vomit Category: Medical Code(s): J69.0 - Pneumonitis due to inhalation of food and vomit (2) Chronic renal insufficiency Current visit: Yes Status: Acute Qualifiers: Chronic kidney disease stage: unspecified stage Qualified Code(s): N18.9 - Chronic kidney disease, unspecified Category: Medical Code(s): N18.9 - Chronic kidney disease, unspecified (3) Leukocytosis Current visit: Yes Status: Acute Qualifiers: Leukocytosis type: unspecified Qualified Code(s): D72.829 - Elevated white blood cell count, unspecified Category: Medical Code(s): D72.829 - Elevated white blood cell count, unspecified (4) UGIB (upper gastrointestinal bleed) Current visit: Yes Status: Acute Category: Medical Code(s): K92.2 - Gastrointestinal hemorrhage, unspecified (5) Anemia Current visit: No Status: Acute Qualifiers: Anemia type: unspecified type Qualified Code(s): D64.9 - Anemia, unspecified Category: Medical Code(s): D64.9 - Anemia, unspecified - Assessment and plan all Dx Assessment and Plan for all problems:: Rounded with Dr. Pimentel all orders per Loren Per staff while placing an NG tube patient began to projectile vomit up brown foul-smelling emesis and O2 saturation dropped in the 80s with increase in heart rate. Was called to the room discussed with Dr. Pimentel ordered stat ABG, x-ray, and increase 02
[2018-06-27 09:53] LABS: ABG Base Excess -2.2 mmol/L (-2.4-2.3); ABG HCO3 22.1 mmhg (22.0-26.0); ABG Oxygen Saturation 97 % (90-100); ABG PCO2 33.8 mmhg (35.0-45.0); ABG PH 7.43 mmol/L (7.35-7.45); ABG TCO2 23.1 mmhg (23-27)
[2018-06-27 09:55] LABS: Allen's Test Patient Unable; Oxygen 40% %
--- NOTE | 2018-06-28 08:40 | Progress Note ---
Subjective Patient reports: no bowel movement Exam Vital signs and Labs for Last 24 Hours: Temp Pulse Resp BP Pulse Ox 98.0 F 115 H 16 110/57 L 98 06/28/18 08:00 06/28/18 08:00 06/28/18 08:00 06/28/18 08:00 06/28/18 08:00 Laboratory Results - last 24 hr 06/27/18 02:22: Urine Color Yellow, Urine Appearance Clear, Urine pH 5.5, Ur Specific [place] 1.020, Urine Protein Trace, Urine Glucose (UA) Negative, Urine Ketones Trace, Urine Blood 1+, Urine Nitrate Negative, Urine Bilirubin Negative, Urine Urobilinogen 0.2, Ur Leukocyte Esterase Negative, Urine WBC Occasional, Urine Bacteria 1+, Urine Mucus Trace 06/27/18 08:15: Sodium 126 L, Potassium 3.5, Chloride 90 L, Carbon Dioxide 23, Anion Gap 16.5 H, BUN 43 H, Creatinine 1.87 H, Estimated Creat Clear 22, Estimated GFR 27 L, Est GFR ( Amer) 33 L D, Glucose 109 H, Calcium 7.9 L 06/27/18 09:45: Specimen Source Right radial, O2 % 40%, ABG pH 7.43, ABG pCO2 33.8 L, ABG pO2 99.0, ABG HCO3 22.1, ABG Total CO2 23.1, ABG O2 Saturation 97, ABG Base Excess -2.2, Ryan Test Patient unable 06/27/18 11:13: POC Glucose 94 06/27/18 17:30: POC Glucose 82 06/27/18 20:07: POC Glucose 78 06/28/18 01:07: POC Glucose 86 06/28/18 05:50: POC Glucose 82 I & O for Last 24 hours: Intake & Output 06/25/18 06/26/18 06/27/18 06/28/18 11:59 11:59 11:59 11:59 Intake Total 0 / 0 Output Total 1100 / 1100 Balance -1100 / -1100 Weight 96 lb Microbiology Reports for the Last 24 Hours: Microbiology 06/27/18 00:35 Blood Blood Culture - Preliminary Gram Negative Rods 06/27/18 00:35 Blood Blood Culture - Preliminary Gram Negative Rods - Constitutional no acute distress - *Routine Abdominal Exam Present: soft, distended Comments: slight increased distention in lateral position Progress Note: A&P (1) Aspiration pneumonia Status: Acute Current Visit: Yes (2) Chronic renal insufficiency Status: Acute Current Visit: Yes (3) Leukocytosis Status: Acute Current Visit: Yes (4) UGIB (upper gastrointestinal bleed) Status: Acute Current Visit: Yes (5) Anemia Status: Acute Current Visit: No (6) SBO (small bowel obstruction) Status: Acute Assessment and plan: SBO vs. severe ileus. Slight increased rectal gas on films this morning. The patient's abdomen remains soft. May require nasogastric decompression of distended stomach. If NG placed...a small bowel follow-through would be beneficial. If the patient does not continue to improve, she will likely require transfer to a tertiary care center for possible surgical intervention (as she has significant comorbid conditions). Current Visit: Yes
--- NOTE | 2018-06-28 08:54 | Progress Note ---
Internal Medicine - PN: Subj Interval history: pt more alert this am but abd sl more distended and pos blood culture Exam Vital signs and Labs for Last 24 Hours: Temp Pulse Resp BP Pulse Ox 98.0 F 115 H 16 110/57 L 98 06/28/18 08:00 06/28/18 08:00 06/28/18 08:00 06/28/18 08:00 06/28/18 08:00 Laboratory Results - last 24 hr 06/27/18 02:22: Urine Color Yellow, Urine Appearance Clear, Urine pH 5.5, Ur Specific [place] 1.020, Urine Protein Trace, Urine Glucose (UA) Negative, Urine Ketones Trace, Urine Blood 1+, Urine Nitrate Negative, Urine Bilirubin Negative, Urine Urobilinogen 0.2, Ur Leukocyte Esterase Negative, Urine WBC Occasional, Urine Bacteria 1+, Urine Mucus Trace 06/27/18 09:45: Specimen Source Right radial, O2 % 40%, ABG pH 7.43, ABG pCO2 33.8 L, ABG pO2 99.0, ABG HCO3 22.1, ABG Total CO2 23.1, ABG O2 Saturation 97, ABG Base Excess -2.2, Ryan Test Patient unable 06/27/18 11:13: POC Glucose 94 06/27/18 17:30: POC Glucose 82 06/27/18 20:07: POC Glucose 78 06/28/18 01:07: POC Glucose 86 06/28/18 05:50: POC Glucose 82 I & O for Last 24 hours: Intake & Output 06/25/18 06/26/18 06/27/18 06/28/18 11:59 11:59 11:59 11:59 Intake Total 0 / 0 Output Total 1100 / 1100 Balance -1100 / -1100 Weight 96 lb Microbiology Reports for the Last 24 Hours: Microbiology 06/27/18 00:35 Blood Blood Culture - Preliminary Gram Negative Rods 06/27/18 00:35 Blood Blood Culture - Preliminary Gram Negative Rods - Constitutional no acute distress, thin - *Routine HEENT Exam Head: Present: normocephalic Eye: Present: EOMI, PERRL ENT: Present: mucous membranes dry - *Routine Neck Exam Present: supple - *Routine Respiratory Exam Present: decreased breath sounds - *Routine Cardiovascular Exam Present: RRR, murmur - *Routine Abdominal Exam Present: soft, tenderness, distended. Absent: normoactive bowel sounds - *Routine Extremities Exam Absent: calf tenderness - *Routine Skin Exam Present: intact - *Routine Neurological Exam Present: alert, CN II-XII intact - Routine Psychiatric Exam Present: unable to assess Assessment and Plan (1) Aspiration pneumonia Current visit: Yes Status: Acute Qualifiers: Aspiration pneumonia type: unspecified Laterality: right Lung location: lower lobe of lung Qualified Code(s): J69.0 - Pneumonitis due to inhalation of food and vomit Category: Medical Code(s): J69.0 - Pneumonitis due to inhalation of food and vomit (2) Chronic renal insufficiency Current visit: Yes Status: Acute Qualifiers: Chronic kidney disease stage: unspecified stage Qualified Code(s): N18.9 - Chronic kidney disease, unspecified Category: Medical Code(s): N18.9 - Chronic kidney disease, unspecified (3) Leukocytosis Current visit: Yes Status: Acute Qualifiers: Leukocytosis type: unspecified Qualified Code(s): D72.829 - Elevated white blood cell count, unspecified Category: Medical Code(s): D72.829 - Elevated white blood cell count, unspecified (4) UGIB (upper gastrointestinal bleed) Current visit: Yes Status: Acute Category: Medical Code(s): K92.2 - Gastrointestinal hemorrhage, unspecified (5) Anemia Current visit: No Status: Acute Qualifiers: Anemia type: unspecified type Qualified Code(s): D64.9 - Anemia, unspecified Category: Medical Code(s): D64.9 - Anemia, unspecified (6) SBO (small bowel obstruction) Current visit: Yes Status: Acute Category: Medical Code(s): K56.609 - Unspecified intestinal obstruction, unspecified as to partial versus complete obstruction (7) Gram-negative bacteremia Current visit: Yes Status: Acute Category: Medical Code(s): R78.81 - Bacteremia (8) Enteropathogenic Escherichia coli infection Current visit: Yes Status: Acute Category: Medical Code(s): A04.0 - Enteropathogenic Escherichia coli infection (9) Ileus Current visit: Yes Status: Acute Category: Medical Code(s): K56.7 - Ileus, unspecified
[2018-06-28 09:20] LABS: Basophils % 0.1 % (0.1-2.0); Eosinophils % 0.1 % (0.1-12.0); Hemoglobin 8.7 g/dL (12.2-16.2); Lymphocytes # 1.8 K/mm3 (0.7-4.5); Lymphocytes % 7.5 % (10-50); Mean Corpuscular HGB Conc 31.2 g/dL (31.8-35.4); Mean Corpuscular Hemoglobin 29.7 pg (27.0-31.2); Mean Corpuscular Volume 95.2 fl (81-99); Mean Platelet Volume 7.3 fl (7.4-10.4); Monocytes # 1.1 K/mm3 (0.1-1.0); Monocytes % 4.5 % (1.7-9.3); Neutrophils # 21.1 K/mm3 (1.8-7.8); Neutrophils % 87.8 % (37.0-80.0); Platelet Count 391 K/mm3 (142-424); Red Blood Count 2.94 M/mm3 (4.20-5.40); Red Cell Distribution Width 17.5 % (11.5-17.5)
--- NOTE | 2018-06-28 10:17 | History & Physical Report ---
*Admission Date: 06/27/18 *Chief complaint: gi bleed *History of present illness: 63 yr old wf was sent from [place] for abd pain and vomiting which had started today - pt is poor historian and could not provide any details - she had recent uti and had upper gi bleed in past - no melena reported. Pt admitted for work up and surgery consult. [facility] History I have reviewed the patient's past medical history: Yes Medical History: Reports:: Diabetes Mellitus Type 1, Hypertension Other Medical History: Reports: Anemia, Other - *Social History Smoking Status: Current every day smoker Alcohol Intake: never Occupational Status: disabled Housing: prison - Psychiatric History Expresses thoughts of harming self/others: None Suicide Plan Description: No Plan *Family Hx:: Unable to obtain Review of Systems - Review of Systems Review of systems:: unable to obtain - *Neurologic Denies seizure-like activity Meds Home Medications Medication Instructions Recorded Confirmed Type ALPRAZolam [Xanax 1mg tab] 1 mg PO BID 05/02/18 06/27/18 History Benztropine Mesylate 1 mg PO BID 05/02/18 06/27/18 History Carvedilol [Coreg 12.5mg 12.5 mg PO BID 05/02/18 06/27/18 History Tablet] Mometasone/Formoterol [Dulera 100 2 puffs IH BID 05/02/18 06/27/18 History Mcg/5 Mcg Inhaler] NIFEdipine [Nifedipine ER] 30 mg PO DAILY 05/02/18 06/27/18 History OXcarbazepine [Oxcarbazepine] 150 mg PO BID 05/02/18 06/27/18 History Omeprazole [Omeprazole 20mg 20 mg PO DAILY 05/02/18 06/27/18 History Capsule] Quetiapine Fumarate [Seroquel] 400 mg PO HS 05/02/18 06/27/18 History Raloxifene HCl 60 mg PO DAILY 05/02/18 06/27/18 History Topiramate 25 mg PO BID 05/02/18 06/27/18 History Vitamin E 400 unit PO DAILY 05/02/18 06/27/18 History Esomeprazole Magnesium [Nexium] 20 mg PO DAILY 05/23/18 06/27/18 History Ondansetron HCl [Ondansetron 8mg 4 mg PO Q8HP PRN 05/23/18 06/27/18 History Tablet] Oxycodone HCl/Acetaminophen 1 tab PO Q4HP PRN 05/23/18 06/27/18 History [Percocet 5/325mg tablet] Calcium Carbonate/Vitamin D3 1 each PO BID 06/27/18 06/27/18 History [Calcium 500-Vit D3 400 Tablet] Allergies Allergy/AdvReac Type Severity Reaction Status Date / Time doxepin Allergy Verified 06/27/18 00:15 Penicillins Allergy Verified 06/27/18 00:15 Exam Vital signs and Labs for Last 24 Hours: Temp Pulse Resp BP Pulse Ox 98.0 F 115 H 16 110/57 L 98 06/28/18 08:00 06/28/18 08:00 06/28/18 08:00 06/28/18 08:00 06/28/18 08:00 Laboratory Results - last 24 hr 06/27/18 02:22: Urine Color Yellow, Urine Appearance Clear, Urine pH 5.5, Ur Specific [place] 1.020, Urine Protein Trace, Urine Glucose (UA) Negative, Urine Ketones Trace, Urine Blood 1+, Urine Nitrate Negative, Urine Bilirubin Negative, Urine Urobilinogen 0.2, Ur Leukocyte Esterase Negative, Urine WBC Occasional, Urine Bacteria 1+, Urine Mucus Trace 06/27/18 11:13: POC Glucose 94 06/27/18 17:30: POC Glucose 82 06/27/18 20:07: POC Glucose 78 06/28/18 01:07: POC Glucose 86 06/28/18 05:50: POC Glucose 82 06/28/18 09:07: WBC 24.0 H*, RBC 2.94 L, Hgb 8.7 L, Hct 28.0 L, MCV 95.2, MCH 29.7, MCHC 31.2 L, RDW 17.5, Plt Count 391, MPV 7.3 L, Neut % (Auto) 87.8 H, Lymph % (Auto) 7.5 L, [place] % (Auto) 4.5, Eos % (Auto) 0.1, Baso % (Auto) 0.1, Neut # (Auto) 21.1 H, Lymph # (Auto) 1.8, [place] # (Auto) 1.1 H, Eos # (Auto) 0.0, Baso # (Auto) 0.0 I & O for Last 24 hours: Intake & Output 06/25/18 06/26/18 06/27/18 06/28/18 11:59 11:59 11:59 11:59 Intake Total 2027 Output Total 1100 / 1100 Balance 928 / 928 Weight 96 lb Microbiology Reports for the Last 24 Hours: Microbiology 06/27/18 00:35 Blood Blood Culture - Preliminary Gram Negative Rods 06/27/18 00:35 Blood Blood Culture - Preliminary Gram Negative Rods - *Routine HEENT Exam Head: Present: normocephalic Eye: Present: PERRL ENT: Present: mucous membranes moist - *Routine Neck Exam Present: supple. Absent: lymphadenopathy - *Routine Respiratory Exam Present: rhonchi, diminished air movement - *Routine Cardiovascular Exam Present: RRR - *Routine Abdominal Exam Present: normoactive bowel sounds, tenderness, distended - *Routine Extremities Exam Absent: cyanosis, clubbing, edema - *Routine Skin Exam Present: warm. Absent: rash - *Routine Neurological Exam Present: alert Assessment and Plan (1) Aspiration pneumonia Current visit: Yes Status: Acute Qualifiers: Aspiration pneumonia type: unspecified Laterality: right Lung location: lower lobe of lung Qualified Code(s): J69.0 - Pneumonitis due to inhalation of food and vomit Category: Medical Code(s): J69.0 - Pneumonitis due to inhalation of food and vomit (2) Chronic renal insufficiency Current visit: Yes Status: Acute Qualifiers: Chronic kidney disease stage: unspecified stage Qualified Code(s): N18.9 - Chronic kidney disease, unspecified Category: Medical Code(s): N18.9 - Chronic kidney disease, unspecified (3) Leukocytosis Current visit: Yes Status: Acute Qualifiers: Leukocytosis type: unspecified Qualified Code(s): D72.829 - Elevated white blood cell count, unspecified Category: Medical Code(s): D72.829 - Elevated white blood cell count, unspecified (4) UGIB (upper gastrointestinal bleed) Current visit: Yes Status: Acute Category: Medical Code(s): K92.2 - Gastrointestinal hemorrhage, unspecified (5) Anemia Current visit: No Status: Acute Qualifiers: Anemia type: unspecified type Qualified Code(s): D64.9 - Anemia, unspecified Category: Medical Code(s): D64.9 - Anemia, unspecified (6) SBO (small bowel obstruction) Current visit: Yes Status: Acute Category: Medical Code(s): K56.609 - Unspecified intestinal obstruction, unspecified as to partial versus complete obstruction - Assessment and plan all Dx Assessment and Plan for all problems:: rounded with mathew all orders per mathew
[2018-06-28 10:40] LABS: Lymphocytes % 5 % (10-50); Monocytes % 3 % (2-9); Neutrophils % 91 % (42-76); Total Cells Counted 100
[2018-06-28 11:43] LABS: Anion Gap 20.8 mEq/L (5-15); Calcium 7.4 mg/dL (8.5-10.1)
[2018-06-28 11:45] LABS: Potassium 3.8 mmoL/L (3.5-5.1)
--- NOTE | 2018-06-28 14:30 | Discharge Summary ---
General - General Admission date:: 06/27/18 Discharge date: 06/28/18 HPI HPI: 63 yr old wf was sent from [place] for abd pain and vomiting which had started today - pt is poor historian and could not provide any details - she had recent uti and had upper gi bleed in past - no melena reported. Pt admitted for work up and surgery consult. Hospital Course Hospital Course: pt admitted with ivf and abx and has been grossly stable but has dev gram neg sepsis and has abn abd exam and surg feels may dev to obstruction and will need to be at -is is a 63-year-old female [facility] concerning possible gastrointestinal hemorrhage. She was admitted after presenting to the emergency department with abdominal pain and vomiting. She is an exceptionally poor historian and has a known history of cognitive deficit. She was recently admitted with similar symptoms and diagnosed with possible upper gastrointestinal hemorrhage. The surgical service was consulted at that time and she did undergo EGD on May 26, [address] Arvizu. She did not have any obvious signs of severe gastritis or peptic ulcer disease. She also did not have any signs of recent hemorrhage noted on this procedure. Please see HPI forwarded from emergency department evaluation below: this wf was sent from [facility] for abd pain and vomiting which had started today - pt is poor historian and could not provide any details - she had recent uti and had upper gi bleed in past - no melena reported - O vs. severe ileus. Slight increased rectal gas on films this morning. The patient's abdomen remains soft. May require nasogastric decompression of distended stomach. If NG placed...a small bowel follow-through would be beneficial. If the patient does not continue to improve, she will likely require transfer to a tertiary care center for possible surgical intervention (as she has significant comorbid conditions). pt with no improvement as of this pm and discussed with dr lomax - [facility] and will transfer for eval and possible surg consult Objective Vital signs: Temp Pulse Resp BP Pulse Ox 98.1 F 116 H 17 113/60 92 L 06/28/18 11:17 06/28/18 11:17 06/28/18 11:17 06/28/18 11:17 06/28/18 11:17 no acute distress, thin - *Routine HEENT Exam Head: Present: normocephalic Eye: Present: EOMI, PERRL. Absent: conjunctival icterus ENT: Present: mucous membranes dry - *Routine Neck Exam Absent: JVD - *Routine Respiratory Exam Present: decreased breath sounds, rhonchi. Absent: respiratory distress - *Routine Cardiovascular Exam Present: RRR, murmur, S4 - *Routine Abdominal Exam Present: soft, tenderness, distended. Absent: normoactive bowel sounds - *Routine Extremities Exam Absent: calf tenderness - *Routine Skin Exam Present: intact - *Routine Neurological Exam Present: alert, CN II-XII intact. Absent: motor deficit - Routine Psychiatric Exam Present: unable to assess Results Labs on day of discharge: Labs from last 24 hours 06/28/18 06/28/18 06/28/18 12:50 09:07 09:07 WBC 24.0 H* RBC 2.94 L Hgb 8.7 L Hct 28.0 L MCV 95.2 MCH 29.7 MCHC 31.2 L RDW 17.5 Plt Count 391 MPV 7.3 L Neut % (Auto) 87.8 H Lymph % (Auto) 7.5 L [place] % (Auto) 4.5 Eos % (Auto) 0.1 Baso % (Auto) 0.1 Neut # (Auto) 21.1 H Lymph # (Auto) 1.8 [place] # (Auto) 1.1 H Eos # (Auto) 0.0 Baso # (Auto) 0.0 Total Counted 100 Neutrophils % (Manual) 91 H Lymphocytes % (Manual) 5 L Atypical Lymphs % 1.0 Monocytes % (Manual) 3 Platelet Estimate Normal Sodium 134 L Potassium 3.8 Chloride 99 Carbon Dioxide 18 L D Anion Gap 20.8 H BUN 49 H Creatinine 1.61 H Estimated Creat Clear 25 Estimated GFR 33 L Est GFR ( Amer) 39 L Glucose 61 L POC Glucose 70 Calcium 7.4 L Urine Color Urine Appearance Urine pH Ur Specific [place] Urine Protein Urine Glucose (UA) Urine Ketones Urine Blood Urine Nitrate Urine Bilirubin Urine Urobilinogen Ur Leukocyte Esterase Urine WBC Urine Bacteria Urine Mucus 06/28/18 06/28/18 06/27/18 05:50 01:07 20:07 WBC RBC Hgb Hct MCV MCH MCHC RDW Plt Count MPV Neut % (Auto) Lymph % (Auto) [place] % (Auto) Eos % (Auto) Baso % (Auto) Neut # (Auto) Lymph # (Auto) [place] # (Auto) Eos # (Auto) Baso # (Auto) Total Counted Neutrophils % (Manual) Lymphocytes % (Manual) Atypical Lymphs % Monocytes % (Manual) Platelet Estimate Sodium Potassium Chloride Carbon Dioxide Anion Gap BUN Creatinine Estimated Creat Clear Estimated GFR Est GFR ( Amer) Glucose POC Glucose 82 86 78 Calcium Urine Color Urine Appearance Urine pH Ur Specific [place] Urine Protein Urine Glucose (UA) Urine Ketones Urine Blood Urine Nitrate Urine Bilirubin Urine Urobilinogen Ur Leukocyte Esterase Urine WBC Urine Bacteria Urine Mucus 06/27/18 06/27/18 17:30 02:22 WBC RBC Hgb Hct MCV MCH MCHC RDW Plt Count MPV Neut % (Auto) Lymph % (Auto) [place] % (Auto) Eos % (Auto) Baso % (Auto) Neut # (Auto) Lymph # (Auto) [place] # (Auto) Eos # (Auto) Baso # (Auto) Total Counted Neutrophils % (Manual) Lymphocytes % (Manual) Atypical Lymphs % Monocytes % (Manual) Platelet Estimate Sodium Potassium Chloride Carbon Dioxide Anion Gap BUN Creatinine Estimated Creat Clear Estimated GFR Est GFR ( Amer) Glucose POC Glucose 82 Calcium Urine Color Yellow Urine Appearance Clear Urine pH 5.5 Ur Specific [place] 1.020 Urine Protein Trace Urine Glucose (UA) Negative Urine Ketones Trace Urine Blood 1+ Urine Nitrate Negative Urine Bilirubin Negative Urine Urobilinogen 0.2 Ur Leukocyte Esterase Negative Urine WBC Occasional Urine Bacteria 1+ Urine Mucus Trace Preliminary micro results at discharge 06/27/18 00:35 Blood Culture - Preliminary Blood Gram Negative Rods 06/27/18 00:35 Blood Culture - Preliminary Blood Gram Negative Rods DS: Diagnosis - Discharge Diagnosis (1) Aspiration pneumonia Status: Acute (2) Chronic renal insufficiency Status: Acute (3) Leukocytosis Status: Acute (4) UGIB (upper gastrointestinal bleed) Status: Acute (5) Anemia Status: Acute (6) SBO (small bowel obstruction) Status: Acute (7) Gram-negative bacteremia Status: Acute (8) Enteropathogenic Escherichia coli infection Status: Acute (9) Ileus Status: Acute Discharge Plan - Patient Discharge Instructions ACTIVITY: Continue current activity DIET: continue same diet Patient Instructions: DI for Hyponatremia, Gastrointestinal Bleeding - Follow up Plan Follow up with: Rafa Arvizu MD [Staff Physician] - 1 week Disposition: Xfer Short-Term Hosp Home Medications: Home Medications Medication Instructions Recorded Confirmed Type ALPRAZolam [Xanax 1mg tab] 1 mg PO BID 05/02/18 06/27/18 History Benztropine Mesylate 1 mg PO BID 05/02/18 06/27/18 History Carvedilol [Coreg 12.5mg 12.5 mg PO BID 05/02/18 06/27/18 History Tablet] Mometasone/Formoterol [Dulera 100 2 puffs IH BID 05/02/18 06/27/18 History Mcg/5 Mcg Inhaler] NIFEdipine [Nifedipine ER] 30 mg PO DAILY 05/02/18 06/27/18 History OXcarbazepine [Oxcarbazepine] 150 mg PO BID 05/02/18 06/27/18 History Omeprazole [Omeprazole 20mg 20 mg PO DAILY 05/02/18 06/27/18 History Capsule] Quetiapine Fumarate [Seroquel] 400 mg PO HS 05/02/18 06/27/18 History Raloxifene HCl 60 mg PO DAILY 05/02/18 06/27/18 History Topiramate 25 mg PO BID 05/02/18 06/27/18 History Vitamin E 400 unit PO DAILY 05/02/18 06/27/18 History Esomeprazole Magnesium [Nexium] 20 mg PO DAILY 05/23/18 06/27/18 History Ondansetron HCl [Ondansetron 8mg 4 mg PO Q8HP PRN 05/23/18 06/27/18 History Tablet] Oxycodone HCl/Acetaminophen 1 tab PO Q4HP PRN 05/23/18 06/27/18 History [Percocet 5/325mg tablet] Calcium Carbonate/Vitamin D3 1 each PO BID 06/27/18 06/27/18 History [Calcium 500-Vit D3 400 Tablet] Prescriptions/Medication Reconciliation: New Cefepime HCl [Maxipime 1gm Vial] 1 gm IV Q12H vial Clindamycin Phosphate [Clindamycin 900mg adv] 900 mg IV Q8H vial.[place] Cefepime HCl [Maxipime 1gm Vial] 1 gm IV Q12H vial Discontinued Vitamin E 400 unit PO DAILY Topiramate 25 mg PO BID Raloxifene HCl 60 mg PO DAILY Quetiapine Fumarate [Seroquel] 400 mg PO HS OXcarbazepine [Oxcarbazepine] 150 mg PO BID NIFEdipine [Nifedipine ER] 30 mg PO DAILY Mometasone/Formoterol [Dulera 100 Mcg/5 Mcg Inhaler] 2 puffs IH BID Carvedilol [Coreg 12.5mg Tablet] 12.5 mg PO BID Benztropine Mesylate 1 mg PO BID ALPRAZolam [Xanax 1mg tab] 1 mg PO BID Ondansetron HCl [Ondansetron 8mg Tablet] 4 mg PO Q8HP PRN PRN Reason: Nausea Esomeprazole Magnesium [Nexium] 20 mg PO DAILY Omeprazole [Omeprazole 20mg Capsule] 20 mg PO DAILY Oxycodone HCl/Acetaminophen [Percocet 5/325mg tablet] 1 tab PO Q4HP PRN PRN Reason: Moderate Pain Calcium Carbonate/Vitamin D3 [Calcium 500-Vit D3 400 Tablet] 1 each PO BID
== END 2018-06-28 19:39 | disposition short-term general hospital (02) ==
LOC: 2ND 23:59 → ER 23:59 → OBSVTOIN 06-27 04:05 → 2ND 06-27 04:08
PROVIDERS: ADMIT Emergency Medicine; ATTEND Emergency Medicine

== ENCOUNTER → 2018-07-19 12:36 | Outpatient (CLI) | payer MEDICAID, SELFPAY ==
--- NOTE | 2018-07-19 12:52 | FL_ITS ---
FL barium swallow modified: 07/19/2018 12:52 PM CLINICAL HISTORY: Aspiration pneumonia follow-up ORDERING PHYSICIAN: Ashish Pimentel MD PATIENT AGE: 63 years Comparison: None TECHNIQUE: Patient administered varying consistencies of barium contrast, while viewed in lateral position under real-time fluoroscopy with cine recording. FLUOROSCOPY TIME: 2 minutes 59 seconds The study was performed in conjunction with speech pathologist. Please see that report & recommendations. FINDINGS: Patient was given varying consistencies of barium. There was penetration with silent aspiration on nectar thickliquids which did not clear with a cough. The patient was able to swallow the other consistencies without difficulty. IMPRESSION: Aspiration with nectar thick liquids Please see speech pathologist report and recommendations.
--- NOTE | 2018-07-19 14:04 | HMH.SLMBS2 ---
Speech & Language Evaluation Speech/Language Mod Barium Swallow Start: 07/19/18 13:49 Freq: once Status: Complete Protocol: Document 07/19/18 13:50 ELSA (Rec: 07/19/18 14:03 ELSA [id number]) [facility] [place] Diet Dietary Recommendations Dysphagia Mechanical Soft Ground Meats Honey Liquids Treatment/Strategies Strategy/Precaution Recommend Chin Tuck Mod Barium Swallow Impressions Summary and Impressions Oral Phase Impression No Impairment (WFL) Oral Phase Summary Ms. Floyd did not exhibit impairments with oral phase of swallow. Pharyngeal Phase Impression Mild Impairment Pharyngeal Phase Summary Ms. Floyd did silent aspirate on nectar thick liquids with chin tuck during the swallow and residue on vocal folds noted. Cough did not clear residue. Speech/Language MBS Assessment/Goals/Plan Assessment Date of Evaluation: 07/19/18 Evaluation Type Initial Certification Assessment/Problems Dysphagia Does Patient Qualify for Service No Qualify/Failure Comment Patient will be followed by SNF to determine if skilled services are warranted. Recommendations PHYSICIAN CERTIFICATION: The specified therapy services are required, authorized, and reviewed every 30 days. Diet Recommendations Dysphagia Mechanical Soft Liquid Type Recommendations Honey Consistency Crush Meds Small OK/Crush large pill Dysphagia Swallow Precautions/Strategies Chin Tuck Plan Pt/Guardian verbally ack understanding Yes of dx/prognosis/goals G -code Required Yes G-CODES ST Current Status [id number] ST Current Status Modifier CK-At least 40% but less than 60% impaired, limited or restricted ST Goal Status [id number] ST Goal Status Modifier CK-At least 40% but less than 60% impaired, limited or restricted Mod Barium Swallow Setup Exam Setup Radiologist Ryan Flanagan Level of Consciousness Awake Alert Appropriate Position (degrees) 90 Mod Barium Swallow-Lat View Textures Lateral View Food Presentation [place] Liquid via Cup Honey Liquid via Cup Pureed Food- Thick Ground Food- Regular Barium Tablet
== END ==
PROVIDERS: PCP Emergency Medicine; Visit Provider Emergency Medicine
DX: J69.0 Pneumonitis due to inhalation of food and vomit (principal)
CPT/HCPCS: 70371; 92611